=== PATIENT | female | born 1935 | race Caucasian/White ===

== ENCOUNTER 2017-08-09 15:27 | Inpatient (IN) ==
[2017-08-20 08:38] VITALS: BP 149/71
== END 2017-08-20 12:55 | DRG 207 ==
LOC: N.5E 15:53 → SUATTDRO 15:53 → N.ICU 08-12 08:31
PROVIDERS: ADMIT Internal Medicine; ATTEND Internal Medicine Cardiovascular Disease

== ENCOUNTER 2017-10-02 18:05 | Inpatient (IN) ==
[2017-10-02] MEDS ORDERED: SODIUM CHLORIDE 0.9% 1,000 ML IV STA (18:54)
[2017-10-02 19:06] LABS: Basophils # 0.1 10*3/uL (0.0-0.2); Basophils % 0.2 % (0.0-0.8); Hematocrit 28.6 VOL% (35.7-47.0); Hemoglobin 8.7 GM/DL (12.0-16.0); Immature Granulocytes % 2.1 %; Immature Granulocytes Absolute 0.47 #; Lymphocytes # 0.5 10*3/uL (1.4-4.0); Mean Corpuscular HGB Conc 30.4 GM/DL (32-36); Mean Corpuscular Hemoglobin 27 PG (27-34); Mean Platelet Volume 10.6 FL (9.6-12.0); Monocytes # 0.8 10*3/uL (0.11-0.8); Monocytes % 3.5 % (1.7-12.7); NRBC # 0.04 10*3/uL; Neutrophils # 20.3 10*3/uL (1.4-7.4); Neutrophils % 92.2 % (38.7-73.9); Platelet Count 479 T/CUMM (130-400); Red Blood Count 3.25 MC/CUMM (3.8-5.5); White Blood Count 22.1 T/CUMM (4-12)
[2017-10-02 19:10] LABS: PT Patient Result 10.7 SECS
[2017-10-02 19:17] LABS: Albumin 2.4 G/DL (3.4-5.0); Bilirubin,Total 0.4 MG/DL (0.2-1.0); Calcium 9.3 MG/DL (8.5-10.1); Osmolality,Calculated 280.1 MOS/KG (273-304); Potassium 4.3 MMOL/L (3.5-5.1); Total Protein 5.3 G/DL (6.4-8.3)
[2017-10-02 19:30] LABS: ABG Base Excess 6.9 MMOL/L (-2.5-2.5); ABG HCO3 30.7 MMOL/L (20-26); ABG Oxygen Saturation 96.8 % (95-100); ABG PCO2 32.9 MM HG (35-48); ABG PH 7.558 (7.35-7.45); ABG PO2 82.5 MM HG (80-95); ABG TCO2 26.9 MMOL/L (23-27); Allen Test Positive
[2017-10-02] MEDS ORDERED: ACETAMINOPHEN 500 MG TABLET PO STA (19:46)
[2017-10-02 19:47] LABS: Band Neutrophils 2 % (0-10); Lymphocytes 3 % (20-55); Segmented Neutrophils 95 % (50-85); Total Cells Counted 100
[2017-10-02] MEDS ORDERED: ACETAMINOPHEN 500 MG TABLET ONE (19:48)
[2017-10-02 19:49] LABS: Anisocytosis 1+; Giant Platelets Few; Hypochromasia 1+; Polychromasia Few
[2017-10-02 19:55] LABS: Apearance,Urine CLEAR (Clear); Bacteria,Urine Occasional /HPF (Few); Bilirubin,Urine Negative (Negative); Blood, Urine Negative (Negative); Glucose,Urine (UA) Negative (Negative); Hyaline Casts,Urine 3 /LPF (0-3); Ketones,Urine 5 mg/dL (Negative); Mucus,Urine Occasional /LPF (Occasional); Nitrite,Urine Negative (Negative); Protein,Urine Negative; RBC,Urine <1 /HPF (0-4); Urine Color Yellow (Yellow); Urine Specific Gravity 1.012 (1.001-1.035); Urine Urobilinogen < 2.0 EU/DL (0.2-1.0); WBC,Urine 4 /HPF (0-6)
[2017-10-02 20:12] LABS: Lactic Acid 2.4 MMOL/L (0.4-2.0)
[2017-10-02] MEDS ORDERED: VANCOMYCIN INJ 1,000 MG in SODIUM CHLORIDE 0.9% 250 ML IV STA (20:36)
[2017-10-02] MEDS ORDERED: ALBUTEROL 2.5 MG/3 ML NEB RESP TX PRN (21:12)
[2017-10-02] MEDS ORDERED: DOCUSATE SODIUM 100 MG CAPSULE PO PRN (21:12)
[2017-10-02] MEDS ORDERED: NOREPINEPHRINE 8 MG in SODIUM CHLORIDE 0.9% 242 ML IV PRN (21:12)
[2017-10-02] MEDS ORDERED: ONDANSETRON 4 MG/2 ML VIAL IV PRN (21:12)
[2017-10-02] MEDS ORDERED: traZODone 50 MG TABLET PO PRN (21:12)
[2017-10-02] MEDS ORDERED: MORPHINE 4 MG/1 ML VIAL IV PRN (21:12)
[2017-10-02] MEDS ORDERED: POLYETHYLENE GLYCOL POWDER 17 GM PACK PO PRN (21:23)
[2017-10-02] MEDS ORDERED: SODIUM CHLORIDE 0.9% 1,000 ML IV SCH (21:30)
[2017-10-03] MEDS: ENOXAPARIN 80 MG/0.8 ML SYRINGE SUBCUT SCH ×2 (01:35→13:53)
[2017-10-03] MEDS: PIPERACILLIN/TAZOBACTAM 3,375 MG in SODIUM CHLORIDE 0.9% 100 ML IV SCH ×3 (01:35→16:37)
[2017-10-03 03:07] LABS: Basophils % 0.1 % (0.0-0.8); Eosinophils % 0.1 % (0.00-10.9); Hematocrit 25.3 VOL% (35.7-47.0); Hemoglobin 7.7 GM/DL (12.0-16.0); Immature Granulocytes Absolute 0.38 #; Lymphocytes # 0.8 10*3/uL (1.4-4.0); Mean Corpuscular HGB Conc 30.4 GM/DL (32-36); Mean Corpuscular Hemoglobin 27 PG (27-34); Mean Corpuscular Volume 88.5 FL (87-102); Mean Platelet Volume 9.7 FL (9.6-12.0); Monocytes % 5.3 % (1.7-12.7); NRBC # 0.02 10*3/uL; Neutrophils # 17.2 10*3/uL (1.4-7.4); Neutrophils % 88.5 % (38.7-73.9); Platelet Count 380 T/CUMM (130-400); Red Blood Count 2.86 MC/CUMM (3.8-5.5); White Blood Count 19.4 T/CUMM (4-12)
[2017-10-03 03:28] LABS: ABG Base Excess 6.8 MMOL/L (-2.5-2.5); ABG HCO3 30.2 MMOL/L (20-26); ABG Oxygen Saturation 91.7 % (95-100); ABG PCO2 38.3 MM HG (35-48); ABG PH 7.515 (7.35-7.45); ABG PO2 69.1 MM HG (80-95); ABG TCO2 31.4 MMOL/L (23-27); Allen Test Positive
[2017-10-03 03:34] LABS: Potassium 3.8 MMOL/L (3.5-5.1)
[2017-10-03 06:51] LABS: Lymphocytes 7 % (20-55); Platelet Estimate Normal; Segmented Neutrophils 90 % (50-85)
[2017-10-03 06:52] LABS: Hypochromasia 1+; Microcytosis 1+; Polychromasia Few
[2017-10-03 06:53] LABS: Total Cells Counted 100
[2017-10-03] MEDS ORDERED: FUROSEMIDE 40 MG/4 ML VIAL ONE (08:06)
[2017-10-03] MEDS: METOPROLOL TARTRATE 25 MG TABLET PO SCH ×2 (08:29→21:03)
[2017-10-03] MEDS: PANTOPRAZOLE 40 MG TABLET PO SCH (08:30)
[2017-10-03] MEDS: DILTIAZEM CD 180 MG CAPSULE PO SCH (08:30)
[2017-10-03] MEDS: VANCOMYCIN INJ 1,000 MG in SODIUM CHLORIDE 0.9% 250 ML IV SCH ×2 (08:31→21:02)
[2017-10-03] MEDS: methylPREDNISolone SOD SUC 40 MG/1 ML VIAL IV SCH ×3 (08:31→19:02)
[2017-10-03] MEDS: FUROSEMIDE 40 MG/4 ML VIAL IV SCH ×2 (08:31→16:37)
[2017-10-03] MEDS: FLUVOXAMINE MALEATE 150 MG PO SCH (21:02)
[2017-10-03] MEDS ORDERED: FUROSEMIDE 40 MG/4 ML VIAL IV SCH (21:07)
[2017-10-04] MEDS: PIPERACILLIN/TAZOBACTAM 3,375 MG in SODIUM CHLORIDE 0.9% 100 ML IV SCH ×3 (00:28→15:50)
[2017-10-04] MEDS: ENOXAPARIN 80 MG/0.8 ML SYRINGE SUBCUT SCH ×2 (00:28→14:36)
[2017-10-04] MEDS: methylPREDNISolone SOD SUC 40 MG/1 ML VIAL IV SCH ×4 (00:28→18:17)
[2017-10-04 03:38] LABS: ABG Base Excess 7.7 MMOL/L (-2.5-2.5); ABG HCO3 31.3 MMOL/L (20-26); ABG Oxygen Saturation 95.5 % (95-100); ABG PCO2 39.7 MM HG (35-48); ABG PH 7.515 (7.35-7.45); ABG PO2 82.7 MM HG (80-95); ABG TCO2 32.5 MMOL/L (23-27); Allen Test Positive; Pt O2 Delivery Device Other
[2017-10-04 04:17] LABS: Calcium 9.3 MG/DL (8.5-10.1); Osmolality,Calculated 282.5 MOS/KG (273-304); Potassium 3.3 MMOL/L (3.5-5.1)
[2017-10-04 04:25] LABS: Basophils % 0.1 % (0.0-0.8); Hematocrit 23.3 VOL% (35.7-47.0); Hemoglobin 7.1 GM/DL (12.0-16.0); Immature Granulocytes % 1.9 %; Immature Granulocytes Absolute 0.27 #; Lymphocytes # 0.6 10*3/uL (1.4-4.0); Lymphocytes % 3.9 % (21.3-54.2); Mean Corpuscular HGB Conc 30.5 GM/DL (32-36); Mean Corpuscular Hemoglobin 27 PG (27-34); Mean Corpuscular Volume 88.6 FL (87-102); Mean Platelet Volume 10.3 FL (9.6-12.0); Monocytes # 0.2 10*3/uL (0.11-0.8); Monocytes % 1.5 % (1.7-12.7); Neutrophils # 13.3 10*3/uL (1.4-7.4); Neutrophils % 92.6 % (38.7-73.9); Platelet Count 370 T/CUMM (130-400); Red Blood Count 2.63 MC/CUMM (3.8-5.5); White Blood Count 14.3 T/CUMM (4-12)
[2017-10-04 05:03] LABS: Hypochromasia 1+; Lymphocytes 3 % (20-55); Microcytosis 1+; Ovalocytes Slight; Platelet Estimate Adequate; Segmented Neutrophils 96 % (50-85); Total Cells Counted 100
[2017-10-04] MEDS ORDERED: FUROSEMIDE 40 MG/4 ML VIAL IV PRN (08:15)
[2017-10-04] MEDS ORDERED: SODIUM CHLORIDE 0.9% 1,000 ML IV PRN (08:15)
[2017-10-04] MEDS: FUROSEMIDE 40 MG/4 ML VIAL IV SCH ×2 (09:19→15:50)
[2017-10-04] MEDS: METOPROLOL TARTRATE 25 MG TABLET PO SCH ×2 (09:24→20:58)
[2017-10-04] MEDS: PANTOPRAZOLE 40 MG TABLET PO SCH (09:24)
[2017-10-04] MEDS: DILTIAZEM CD 180 MG CAPSULE PO SCH (09:24)
[2017-10-04] MEDS: VANCOMYCIN INJ 1,000 MG in SODIUM CHLORIDE 0.9% 250 ML IV SCH ×2 (09:25→20:58)
[2017-10-04] MEDS: FLUVOXAMINE MALEATE 150 MG PO SCH ×2 (09:25→21:04)
[2017-10-04 11:26] LABS: % Iron Saturation 8.8 % (18-50)
[2017-10-04 11:28] LABS: Folate > 24.0 NG/ML (5.4-24.0); Vitamin B12 589 PG/ML (211-911)
[2017-10-04] MEDS: POTASSIUM CHLORIDE 20 MEQ TABLET PO SCH ×3 (11:45→18:17)
[2017-10-05] MEDS: PIPERACILLIN/TAZOBACTAM 3,375 MG in SODIUM CHLORIDE 0.9% 100 ML IV SCH ×3 (00:49→16:20)
[2017-10-05] MEDS: methylPREDNISolone SOD SUC 40 MG/1 ML VIAL IV SCH ×4 (00:50→18:25)
[2017-10-05] MEDS: ENOXAPARIN 80 MG/0.8 ML SYRINGE SUBCUT SCH ×2 (00:51→13:05)
[2017-10-05 04:15] LABS: Basophils % 0.1 % (0.0-0.8); Hematocrit 30.6 VOL% (35.7-47.0); Hemoglobin 9.7 GM/DL (12.0-16.0); Immature Granulocytes % 1.8 %; Immature Granulocytes Absolute 0.24 #; Lymphocytes # 0.5 10*3/uL (1.4-4.0); Lymphocytes % 3.7 % (21.3-54.2); Mean Corpuscular HGB Conc 31.7 GM/DL (32-36); Mean Corpuscular Hemoglobin 28 PG (27-34); Mean Corpuscular Volume 87.4 FL (87-102); Mean Platelet Volume 10.5 FL (9.6-12.0); Monocytes # 0.4 10*3/uL (0.11-0.8); Monocytes % 2.7 % (1.7-12.7); Neutrophils % 91.7 % (38.7-73.9); Platelet Count 379 T/CUMM (130-400); Red Cell Distribution Width 24.3 % (9.3-17.3); White Blood Count 13.1 T/CUMM (4-12)
[2017-10-05 04:30] LABS: ABG Base Excess 6.6 MMOL/L (-2.5-2.5); ABG HCO3 30.4 MMOL/L (20-26); ABG Oxygen Saturation 95.5 % (95-100); ABG PCO2 44.4 MM HG (35-48); ABG PH 7.457 (7.35-7.45); ABG PO2 77.3 MM HG (80-95); ABG TCO2 28.1 MMOL/L (23-27); Allen Test Positive; Pt O2 Delivery Device Other
[2017-10-05 04:42] LABS: Calcium 8.9 MG/DL (8.5-10.1); Osmolality,Calculated 286.5 MOS/KG (273-304); Potassium 3.2 MMOL/L (3.5-5.1)
[2017-10-05 05:05] LABS: Hypochromasia 1+; Lymphocytes 7 % (20-55); Microcytosis 1+; Platelet Estimate Adequate; Segmented Neutrophils 93 % (50-85); Total Cells Counted 100
[2017-10-05] MEDS: FLUVOXAMINE MALEATE 150 MG PO SCH ×2 (08:29→21:17)
[2017-10-05] MEDS: DILTIAZEM CD 180 MG CAPSULE PO SCH (08:29)
[2017-10-05] MEDS: METOPROLOL TARTRATE 25 MG TABLET PO SCH ×2 (08:29→21:17)
[2017-10-05] MEDS: POTASSIUM CHLORIDE 20 MEQ/15 ML UDCUP PO PRN ×4 (08:30→16:20)
[2017-10-05] MEDS: VANCOMYCIN INJ 1,000 MG in SODIUM CHLORIDE 0.9% 250 ML IV SCH ×2 (08:30→21:17)
[2017-10-05] MEDS: PANTOPRAZOLE 40 MG TABLET PO SCH (08:30)
[2017-10-05] MEDS: FUROSEMIDE 40 MG/4 ML VIAL IV SCH (08:32)
[2017-10-05] MEDS ORDERED: FUROSEMIDE 40 MG/4 ML VIAL IV SCH (09:00)
[2017-10-05] MEDS ORDERED: METOPROLOL TARTRATE 25 MG TABLET PO ONE (09:30)
[2017-10-06] MEDS: PIPERACILLIN/TAZOBACTAM 3,375 MG in SODIUM CHLORIDE 0.9% 100 ML IV SCH ×3 (00:24→16:18)
[2017-10-06] MEDS: ENOXAPARIN 80 MG/0.8 ML SYRINGE SUBCUT SCH ×2 (00:25→13:00)
[2017-10-06] MEDS: methylPREDNISolone SOD SUC 40 MG/1 ML VIAL IV SCH ×4 (00:25→19:35)
[2017-10-06 04:20] LABS: ABG Base Excess 4.3 MMOL/L (-2.5-2.5); ABG HCO3 28.2 MMOL/L (20-26); ABG Oxygen Saturation 97.2 % (95-100); ABG PCO2 44.1 MM HG (35-48); ABG PH 7.429 (7.35-7.45); ABG PO2 91.2 MM HG (80-95); ABG TCO2 26.2 MMOL/L (23-27)
[2017-10-06 04:24] LABS: Hematocrit 32.6 VOL% (35.7-47.0); Hemoglobin 10.3 GM/DL (12.0-16.0); Mean Corpuscular HGB Conc 31.6 GM/DL (32-36); Mean Corpuscular Hemoglobin 28 PG (27-34); Mean Corpuscular Volume 88.3 FL (87-102); Mean Platelet Volume 10.2 FL (9.6-12.0); Platelet Count 411 T/CUMM (130-400); Red Blood Count 3.69 MC/CUMM (3.8-5.5); Red Cell Distribution Width 22.6 % (9.3-17.3); White Blood Count 10.8 T/CUMM (4-12)
[2017-10-06 04:25] LABS: Basophils % 0.1 % (0.0-0.8); Immature Granulocytes % 4.4 %; Immature Granulocytes Absolute 0.47 #; Lymphocytes # 0.5 10*3/uL (1.4-4.0); Lymphocytes % 4.4 % (21.3-54.2); Monocytes # 0.4 10*3/uL (0.11-0.8); Monocytes % 3.5 % (1.7-12.7); Neutrophils # 9.5 10*3/uL (1.4-7.4); Neutrophils % 87.6 % (38.7-73.9)
[2017-10-06 04:51] LABS: Calcium 8.9 MG/DL (8.5-10.1); Osmolality,Calculated 284.7 MOS/KG (273-304); Potassium 3.6 MMOL/L (3.5-5.1)
[2017-10-06 05:02] LABS: Hypochromasia 1+; Lymphocytes 7 % (20-55); Metamyelocytes 1 %; Microcytosis 1+; Ovalocytes Slight; Platelet Estimate Increased; Segmented Neutrophils 90 % (50-85); Total Cells Counted 100
[2017-10-06] MEDS: POTASSIUM CHLORIDE 20 MEQ/15 ML UDCUP PO PRN ×2 (06:14→08:56)
[2017-10-06] MEDS ORDERED: POTASSIUM CHLORIDE 20 MEQ TABLET PO ONE (08:21)
[2017-10-06] MEDS: FLUVOXAMINE MALEATE 150 MG PO SCH ×2 (09:38→22:12)
[2017-10-06] MEDS: DILTIAZEM CD 180 MG CAPSULE PO SCH (09:38)
[2017-10-06] MEDS: METOPROLOL TARTRATE 25 MG TABLET PO SCH ×2 (09:39→22:11)
[2017-10-06] MEDS: FUROSEMIDE 40 MG/4 ML VIAL IV SCH ×2 (09:39→16:19)
[2017-10-06] MEDS: PANTOPRAZOLE 40 MG TABLET PO SCH (09:39)
[2017-10-06] MEDS: VANCOMYCIN INJ 1,000 MG in SODIUM CHLORIDE 0.9% 250 ML IV SCH (22:12)
[2017-10-07] MEDS: ENOXAPARIN 80 MG/0.8 ML SYRINGE SUBCUT SCH (00:27)
[2017-10-07] MEDS: methylPREDNISolone SOD SUC 40 MG/1 ML VIAL IV SCH ×2 (00:27→06:02)
[2017-10-07] MEDS: PIPERACILLIN/TAZOBACTAM 3,375 MG in SODIUM CHLORIDE 0.9% 100 ML IV SCH ×2 (00:27→08:21)
[2017-10-07 03:18] LABS: Hematocrit 32.3 VOL% (35.7-47.0); Hemoglobin 10.5 GM/DL (12.0-16.0); Immature Granulocytes % 3.7 %; Immature Granulocytes Absolute 0.39 #; Lymphocytes # 0.5 10*3/uL (1.4-4.0); Lymphocytes % 4.4 % (21.3-54.2); Mean Corpuscular HGB Conc 32.5 GM/DL (32-36); Mean Corpuscular Hemoglobin 28 PG (27-34); Mean Corpuscular Volume 84.6 FL (87-102); Mean Platelet Volume 9.9 FL (9.6-12.0); Monocytes # 0.5 10*3/uL (0.11-0.8); Monocytes % 4.6 % (1.7-12.7); Neutrophils # 9.1 10*3/uL (1.4-7.4); Neutrophils % 87.3 % (38.7-73.9); Platelet Count 419 T/CUMM (130-400); Red Blood Count 3.82 MC/CUMM (3.8-5.5); Red Cell Distribution Width 22.5 % (9.3-17.3); White Blood Count 10.5 T/CUMM (4-12)
[2017-10-07 03:53] LABS: Calcium 8.3 MG/DL (8.5-10.1); Osmolality,Calculated 287.5 MOS/KG (273-304); Potassium 2.8 MMOL/L (3.5-5.1)
[2017-10-07] MEDS: POTASSIUM CHLORIDE 20 MEQ/15 ML UDCUP PO PRN ×4 (04:21→10:49)
[2017-10-07 05:31] LABS: Band Neutrophils 3 % (0-10); Hypochromasia 1+; Lymphocytes 1 % (20-55); Microcytosis 1+; Polychromasia Slight; Segmented Neutrophils 91 % (50-85); Total Cells Counted 100
[2017-10-07] MEDS: FUROSEMIDE 40 MG/4 ML VIAL IV SCH ×2 (08:21→16:15)
[2017-10-07] MEDS ORDERED: POTASSIUM CHLORIDE 20 MEQ TABLET PO SCH (09:30)
[2017-10-07] MEDS ORDERED: MEROPENEM 1,000 MG in SODIUM CHLORIDE 0.9% 100 ML IV SCH (09:30)
[2017-10-07] MEDS ORDERED: ENOXAPARIN 40 MG/0.4 ML SYRINGE SUBCUT SCH (09:30)
[2017-10-07] MEDS: FLUVOXAMINE MALEATE 150 MG PO SCH (10:50)
[2017-10-07] MEDS: PANTOPRAZOLE 40 MG TABLET PO SCH (10:51)
[2017-10-07] MEDS: DILTIAZEM CD 180 MG CAPSULE PO SCH (10:51)
[2017-10-07] MEDS: METOPROLOL TARTRATE 25 MG TABLET PO SCH (10:51)
[2017-10-07] MEDS ORDERED: methylPREDNISolone SOD SUC 40 MG/1 ML VIAL IV SCH (14:00)
[2017-10-07] MEDS ORDERED: ZINC OXIDE PASTE 113 GM TUBE TOP SCH (14:30)
[2017-10-07] MEDS ORDERED: POTASSIUM CHLORIDE 20 MEQ/15 ML UDCUP PO SCH (15:00)
[2017-10-07] MEDS: VANCOMYCIN INJ 1,000 MG in SODIUM CHLORIDE 0.9% 250 ML IV SCH (16:14)
[2017-10-07 16:56] VITALS: BP 158/53
== END 2017-10-07 16:45 | DRG 853 ==
LOC: EDUNIT# → EDBD → N.ED 18:05 → SUATTDRO 21:12 → N.EDINP 21:12 → N.ICU 23:47
PROVIDERS: ADMIT Internal Medicine Geriatric Medicine; ATTEND Internal Medicine

== ENCOUNTER 2018-01-31 12:30 | Inpatient (IN) ==
[2018-01-31] MEDS ORDERED: ALBUTEROL 2.5 MG/3 ML NEB RESP TX PRN (14:41)
[2018-01-31] MEDS ORDERED: ACETAMINOPHEN 325 MG TABLET PO PRN (14:41)
[2018-01-31] MEDS ORDERED: PANTOPRAZOLE 40 MG VIAL IV SCH (15:00)
[2018-01-31 15:06] LABS: ABG Base Excess 5.2 MMOL/L (-2.5-2.5); ABG Oxygen Saturation 93.8 % (95-100); ABG PCO2 35.7 MM HG (35-48); ABG PO2 65.6 MM HG (80-95); ABG TCO2 26.7 MMOL/L (23-27); Allen Test Positive
[2018-01-31] MEDS ORDERED: DOCUSATE SODIUM 100 MG CAPSULE PO PRN (15:14)
[2018-01-31] MEDS ORDERED: POLYETHYLENE GLYCOL POWDER 17 GM PACK PO PRN (15:14)
[2018-01-31] MEDS: FUROSEMIDE 40 MG/4 ML VIAL IV SCH (15:15)
[2018-01-31 15:30] LABS: Basophils % 0.3 % (0.0-0.8); Eosinophils # 0.2 10*3/uL (0.0-0.87); Eosinophils % 1.5 % (0.00-10.9); Hematocrit 23.5 VOL% (35.7-47.0); Hemoglobin 6.9 GM/DL (12.0-16.0); Immature Granulocytes Absolute 0.14 #; Lymphocytes # 0.8 10*3/uL (1.4-4.0); Lymphocytes % 5.9 % (21.3-54.2); Mean Corpuscular HGB Conc 29.4 GM/DL (32-36); Mean Corpuscular Hemoglobin 21 PG (27-34); Mean Corpuscular Volume 70.4 FL (87-102); Mean Platelet Volume 11.2 FL (9.6-12.0); Monocytes # 1.3 10*3/uL (0.11-0.8); Monocytes % 9.9 % (1.7-12.7); Neutrophils % 81.4 % (38.7-73.9); Platelet Count 444 T/CUMM (130-400); Red Blood Count 3.34 MC/CUMM (3.8-5.5); Red Cell Distribution Width 18.9 % (9.3-17.3); White Blood Count 13.5 T/CUMM (4-12)
[2018-01-31 15:49] LABS: Apearance,Urine CLEAR (Clear); Bilirubin,Urine Negative (Negative); Blood, Urine Negative (Negative); Glucose,Urine (UA) Negative (Negative); Hyaline Casts,Urine 1 /LPF (0-3); Ketones,Urine 5 mg/dL (Negative); Mucus,Urine Occasional /LPF (Occasional); Nitrite,Urine Negative (Negative); Protein,Urine Negative; Squamous Epithelial Cell,Urine Occasional /HPF (0-10); Urine Color Yellow (Yellow); Urine Specific Gravity 1.011 (1.001-1.035); Urine Urobilinogen < 2.0 EU/DL (0.2-1.0); WBC,Urine 1 /HPF (0-6)
[2018-01-31 15:53] LABS: Lactic Acid 1.8 MMOL/L (0.4-2.0)
[2018-01-31] MEDS ORDERED: SODIUM CHLORIDE 0.9% 1,000 ML IV PRN (16:07)
[2018-01-31 16:39] LABS: Albumin 2.4 G/DL (3.4-5.0); Bilirubin,Total 1.7 MG/DL (0.2-1.0); Calcium 8.9 MG/DL (8.5-10.1); Osmolality,Calculated 278.7 MOS/KG (273-304); Potassium 4.3 MMOL/L (3.5-5.1); Total Protein 5.2 G/DL (6.4-8.3)
[2018-01-31] MEDS: METOPROLOL TARTRATE 25 MG TABLET PO SCH (20:30)
[2018-01-31] MEDS: SPIRONOLACTONE 25 MG TABLET PO SCH (20:30)
[2018-01-31] MEDS: PANTOPRAZOLE 40 MG TABLET PO SCH (20:31)
[2018-01-31] MEDS ORDERED: FUROSEMIDE 40 MG/4 ML VIAL IV ONE (20:39)
[2018-01-31] MEDS ORDERED: FLUVOXAMINE MALEATE 150 MG PO SCH (21:00)
[2018-01-31] MEDS ORDERED: APIXABAN 5 MG TABLET PO SCH (21:00)
[2018-02-01 05:06] LABS: Potassium 3.6 MMOL/L (3.5-5.1)
[2018-02-01 05:35] LABS: Basophils # 0.1 10*3/uL (0.0-0.2); Basophils % 0.3 % (0.0-0.8); Eosinophils # 0.4 10*3/uL (0.0-0.87); Eosinophils % 2.3 % (0.00-10.9); Hematocrit 25.2 VOL% (35.7-47.0); Hemoglobin 7.7 GM/DL (12.0-16.0); Immature Granulocytes % 1.1 %; Immature Granulocytes Absolute 0.17 #; Lymphocytes # 0.7 10*3/uL (1.4-4.0); Lymphocytes % 4.5 % (21.3-54.2); Mean Corpuscular HGB Conc 30.6 GM/DL (32-36); Mean Corpuscular Hemoglobin 21 PG (27-34); Mean Platelet Volume 11.5 FL (9.6-12.0); Monocytes # 1.5 10*3/uL (0.11-0.8); Monocytes % 9.7 % (1.7-12.7); Neutrophils # 12.3 10*3/uL (1.4-7.4); Neutrophils % 82.1 % (38.7-73.9); Platelet Count 420 T/CUMM (130-400); Red Cell Distribution Width 18.2 % (9.3-17.3)
[2018-02-01 05:46] LABS: Eosinophils 1 % (0-10); Hypochromasia 1+; Lymphocytes 9 % (20-55); Microcytosis 1+; Platelet Estimate Normal; Polychromasia Few; Segmented Neutrophils 90 % (50-85); Target Cells Few; Total Cells Counted 100
[2018-02-01] MEDS ORDERED: PANTOPRAZOLE 40 MG TABLET PO SCH (09:00)
[2018-02-01] MEDS ORDERED: DILTIAZEM 60 MG TABLET PO SCH (09:00)
[2018-02-01] MEDS ORDERED: SODIUM CHLORIDE 0.9% 1,000 ML IV PRN (09:09)
[2018-02-01] MEDS: SPIRONOLACTONE 25 MG TABLET PO SCH ×2 (09:20→20:53)
[2018-02-01] MEDS: METOPROLOL TARTRATE 25 MG TABLET PO SCH ×2 (09:21→20:52)
[2018-02-01] MEDS: FUROSEMIDE 40 MG/4 ML VIAL IV SCH ×3 (09:21→18:47)
[2018-02-01] MEDS: POTASSIUM CHLORIDE 10 MEQ TABLET PO SCH (09:21)
[2018-02-01] MEDS: PANTOPRAZOLE 40 MG TABLET PO SCH ×2 (09:21→20:52)
[2018-02-01] MEDS ORDERED: IRON DEXTRAN 50 MG in SYRINGE 1 EACH IV ONE (10:00)
[2018-02-01] MEDS ORDERED: SODIUM CHLORIDE 0.9% IV ONE (11:00)
[2018-02-01] MEDS ORDERED: IRON DEXTRAN IV ONE (11:00)
[2018-02-01] MEDS ORDERED: FUROSEMIDE 40 MG/4 ML VIAL IV ONE (12:30)
[2018-02-01] MEDS: LEVOTHYROXINE 75 MCG TABLET PO SCH (12:44)
[2018-02-01 14:29] LABS: Hematocrit 29.2 VOL% (35.7-47.0); Hemoglobin 8.8 GM/DL (12.0-16.0)
[2018-02-01] MEDS ORDERED: MAGNESIUM CITRATE 300 ML BOTTLE PO ONE (18:00)
[2018-02-01] MEDS: traZODone 50 MG TABLET PO PRN (20:52)
[2018-02-01] MEDS: POLYETHYLENE GLYCOL POWDER 17 GM PACK PO SCH (20:53)
[2018-02-02] MEDS ORDERED: FUROSEMIDE 20 MG/2 ML VIAL ONE (01:32)
[2018-02-02] MEDS: FUROSEMIDE 40 MG/4 ML VIAL IV SCH ×3 (01:47→18:23)
[2018-02-02 05:20] LABS: Basophils # 0.1 10*3/uL (0.0-0.2); Basophils % 0.3 % (0.0-0.8); Eosinophils # 0.7 10*3/uL (0.0-0.87); Eosinophils % 4.3 % (0.00-10.9); Hematocrit 30.6 VOL% (35.7-47.0); Hemoglobin 9.5 GM/DL (12.0-16.0); Immature Granulocytes % 1.1 %; Immature Granulocytes Absolute 0.17 #; Lymphocytes # 0.8 10*3/uL (1.4-4.0); Mean Corpuscular Hemoglobin 22 PG (27-34); Mean Corpuscular Volume 72.2 FL (87-102); Mean Platelet Volume 11.1 FL (9.6-12.0); Monocytes # 1.4 10*3/uL (0.11-0.8); Neutrophils # 12.1 10*3/uL (1.4-7.4); Neutrophils % 80.3 % (38.7-73.9); Platelet Count 426 T/CUMM (130-400); Red Blood Count 4.24 MC/CUMM (3.8-5.5); Red Cell Distribution Width 19.2 % (9.3-17.3); White Blood Count 15.1 T/CUMM (4-12)
[2018-02-02 05:50] LABS: Calcium 9.5 MG/DL (8.5-10.1); Osmolality,Calculated 286.3 MOS/KG (273-304); Potassium 3.7 MMOL/L (3.5-5.1)
[2018-02-02 06:23] LABS: Albumin 2.1 G/DL (3.4-5.0); Bilirubin,Direct 1.94 MG/DL (0.0-0.20); Bilirubin,Indirect 0.6 MG/DL (0.0-1.0); Bilirubin,Total 2.5 MG/DL (0.2-1.0); Total Protein 5.7 G/DL (6.4-8.3)
[2018-02-02] MEDS: METOPROLOL TARTRATE 25 MG TABLET PO SCH ×2 (10:10→21:02)
[2018-02-02] MEDS: LEVOTHYROXINE 75 MCG TABLET PO SCH (10:10)
[2018-02-02] MEDS: POLYETHYLENE GLYCOL POWDER 17 GM PACK PO SCH ×2 (10:11→21:01)
[2018-02-02] MEDS: PANTOPRAZOLE 40 MG TABLET PO SCH ×2 (10:11→21:02)
[2018-02-02] MEDS: SPIRONOLACTONE 25 MG TABLET PO SCH ×2 (10:11→21:03)
[2018-02-02] MEDS: POTASSIUM CHLORIDE 10 MEQ TABLET PO SCH (10:11)
[2018-02-02 17:48] LABS: ABG Base Excess 6.5 MMOL/L (-2.5-2.5); ABG HCO3 30.3 MMOL/L (20-26); ABG Oxygen Saturation 97.6 % (95-100); ABG PCO2 38.4 MM HG (35-48); ABG PH 7.502 (7.35-7.45); ABG PO2 86.9 MM HG (80-95); ABG TCO2 27.3 MMOL/L (23-27)
[2018-02-02] MEDS: PIPERACILLIN/TAZOBACTAM 3,375 MG in SODIUM CHLORIDE 0.9% 100 ML IV SCH (18:22)
[2018-02-02] MEDS: ALBUTEROL/IPRATROPIUM 3 ML NEB RESP TX SCH (20:23)
[2018-02-02] MEDS: traZODone 50 MG TABLET PO PRN (21:02)
[2018-02-03] MEDS: ALBUTEROL/IPRATROPIUM 3 ML NEB RESP TX SCH ×7 (00:40→23:49)
[2018-02-03] MEDS: FUROSEMIDE 40 MG/4 ML VIAL IV SCH ×3 (01:03→21:03)
[2018-02-03] MEDS: PIPERACILLIN/TAZOBACTAM 3,375 MG in SODIUM CHLORIDE 0.9% 100 ML IV SCH ×3 (01:04→16:57)
[2018-02-03 05:25] LABS: Basophils # 0.1 10*3/uL (0.0-0.2); Basophils % 0.3 % (0.0-0.8); Eosinophils # 0.8 10*3/uL (0.0-0.87); Hematocrit 30.2 VOL% (35.7-47.0); Hemoglobin 9.1 GM/DL (12.0-16.0); Immature Granulocytes % 1.2 %; Immature Granulocytes Absolute 0.19 #; Lymphocytes % 6.3 % (21.3-54.2); Mean Corpuscular HGB Conc 30.1 GM/DL (32-36); Mean Corpuscular Hemoglobin 22 PG (27-34); Mean Corpuscular Volume 72.9 FL (87-102); Mean Platelet Volume 11.3 FL (9.6-12.0); Monocytes # 1.4 10*3/uL (0.11-0.8); Monocytes % 9.1 % (1.7-12.7); Neutrophils % 78.1 % (38.7-73.9); Platelet Count 466 T/CUMM (130-400); Red Blood Count 4.14 MC/CUMM (3.8-5.5); Red Cell Distribution Width 20.7 % (9.3-17.3); White Blood Count 15.4 T/CUMM (4-12)
[2018-02-03 06:01] VITALS: BP 106/46
[2018-02-03 06:10] LABS: Albumin 1.9 G/DL (3.4-5.0); Bilirubin,Total 1.9 MG/DL (0.2-1.0); Calcium 9.9 MG/DL (8.5-10.1); Potassium 3.7 MMOL/L (3.5-5.1); Total Protein 5.5 G/DL (6.4-8.3)
[2018-02-03] MEDS: POTASSIUM CHLORIDE 10 MEQ TABLET PO SCH (09:40)
[2018-02-03] MEDS: LEVOTHYROXINE 75 MCG TABLET PO SCH (09:40)
[2018-02-03] MEDS: POLYETHYLENE GLYCOL POWDER 17 GM PACK PO SCH ×2 (09:40→21:04)
[2018-02-03] MEDS: SPIRONOLACTONE 25 MG TABLET PO SCH ×2 (09:40→21:02)
[2018-02-03] MEDS: methylPREDNISolone SOD SUC 40 MG/1 ML VIAL IV SCH ×2 (09:40→16:55)
[2018-02-03] MEDS: PANTOPRAZOLE 40 MG TABLET PO SCH ×2 (09:41→21:04)
[2018-02-03] MEDS: METOPROLOL TARTRATE 25 MG TABLET PO SCH ×2 (09:41→21:04)
[2018-02-03] MEDS: FLUVOXAMINE MALEATE 150 MG PO SCH ×2 (10:50→21:06)
[2018-02-03] MEDS ORDERED: POTASSIUM CHLORIDE 20 MEQ PACK PO ONE (16:59)
[2018-02-03 18:57] LABS: % Iron Saturation 89.9 % (18-50)
[2018-02-03 19:09] LABS: Folate > 24.0 NG/ML (5.4-24.0); Vitamin B12 > 2000 PG/ML (211-911)
[2018-02-04] MEDS: methylPREDNISolone SOD SUC 40 MG/1 ML VIAL IV SCH ×2 (01:37→08:29)
[2018-02-04] MEDS: PIPERACILLIN/TAZOBACTAM 3,375 MG in SODIUM CHLORIDE 0.9% 100 ML IV SCH ×2 (01:37→08:36)
[2018-02-04] MEDS: ALBUTEROL/IPRATROPIUM 3 ML NEB RESP TX SCH ×3 (03:09→12:30)
[2018-02-04 03:32] LABS: Basophils % 0.2 % (0.0-0.8); Eosinophils % 0.1 % (0.00-10.9); Hematocrit 31.1 VOL% (35.7-47.0); Hemoglobin 9.1 GM/DL (12.0-16.0); Immature Granulocytes % 1.8 %; Immature Granulocytes Absolute 0.22 #; Lymphocytes # 0.6 10*3/uL (1.4-4.0); Lymphocytes % 4.7 % (21.3-54.2); Mean Corpuscular HGB Conc 29.3 GM/DL (32-36); Mean Corpuscular Hemoglobin 22 PG (27-34); Mean Corpuscular Volume 74.8 FL (87-102); Mean Platelet Volume 11.4 FL (9.6-12.0); Monocytes # 0.2 10*3/uL (0.11-0.8); Monocytes % 1.6 % (1.7-12.7); Neutrophils # 11.2 10*3/uL (1.4-7.4); Neutrophils % 91.6 % (38.7-73.9); Platelet Count 452 T/CUMM (130-400); Red Blood Count 4.16 MC/CUMM (3.8-5.5); Red Cell Distribution Width 21.7 % (9.3-17.3); White Blood Count 12.2 T/CUMM (4-12)
[2018-02-04 04:01] LABS: Calcium 9.9 MG/DL (8.5-10.1); Osmolality,Calculated 286.5 MOS/KG (273-304); Potassium 4.2 MMOL/L (3.5-5.1)
[2018-02-04 04:18] LABS: Hypochromasia 1+; Lymphocytes 5 % (20-55); Platelet Estimate Normal; Polychromasia Few; Segmented Neutrophils 95 % (50-85); Total Cells Counted 100
[2018-02-04 04:44] LABS: Albumin 1.9 G/DL (3.4-5.0); Bilirubin,Total 1.1 MG/DL (0.2-1.0); Calcium 9.6 MG/DL (8.5-10.1); Osmolality,Calculated 286.5 MOS/KG (273-304); Potassium 4.2 MMOL/L (3.5-5.1); Total Protein 5.7 G/DL (6.4-8.3)
[2018-02-04 05:16] LABS: ABG Base Excess 5.6 MMOL/L (-2.5-2.5); ABG Oxygen Saturation 95.8 % (95-100); ABG PCO2 43.6 MM HG (35-48); ABG PH 7.456 (7.35-7.45); ABG PO2 89.3 MM HG (80-95); ABG TCO2 31.4 MMOL/L (23-27); Allen Test Positive; Pt O2 Delivery Device Other
[2018-02-04] MEDS ORDERED: LINACLOTIDE 145 MCG CAPSULE PO SCH (07:30)
[2018-02-04] MEDS: LEVOTHYROXINE 75 MCG TABLET PO SCH (08:28)
[2018-02-04] MEDS: METOPROLOL TARTRATE 25 MG TABLET PO SCH (08:28)
[2018-02-04] MEDS: POTASSIUM CHLORIDE 10 MEQ TABLET PO SCH (08:28)
[2018-02-04] MEDS: PANTOPRAZOLE 40 MG TABLET PO SCH (08:29)
[2018-02-04] MEDS: SPIRONOLACTONE 25 MG TABLET PO SCH (08:29)
[2018-02-04] MEDS: FLUVOXAMINE MALEATE 150 MG PO SCH (08:29)
[2018-02-04] MEDS: FUROSEMIDE 40 MG/4 ML VIAL IV SCH (08:36)
[2018-02-04] MEDS ORDERED: MONTELUKAST 10 MG TABLET PO SCH (09:00)
[2018-02-04] MEDS ORDERED: ZINC OXIDE PASTE 113 GM TUBE TOP PRN (10:41)
== END 2018-02-04 14:22 | DRG 291 ==
LOC: N.CC → SUATTDRO 14:43
PROVIDERS: ADMIT Internal Medicine; ATTEND Internal Medicine

== ENCOUNTER 2020-09-19 13:45 | Inpatient (IN) ==
[2020-09-19 14:30] LABS: Basophils # 0.1 10*3/uL (0.0-0.2); Basophils % 0.3 % (0.0-0.8); Eosinophils # 0.1 10*3/uL (0.0-0.87); Eosinophils % 0.2 % (0.00-10.9); Hematocrit 42.8 VOL% (35.7-47.0); Immature Granulocytes % 1.1 %; Immature Granulocytes Absolute 0.22 #; Lymphocytes # 0.3 10*3/uL (1.4-4.0); Lymphocytes % 1.2 % (21.3-54.2); Mean Corpuscular HGB Conc 32.7 GM/DL (32-36); Mean Corpuscular Volume 90.9 FL (87-102); Mean Platelet Volume 10.8 FL (9.6-12.0); Monocytes % 5.1 % (1.7-12.7); Neutrophils % 92.1 % (38.7-73.9); Platelet Count 624 T/CUMM (130-400); Red Blood Count 4.71 MC/CUMM (3.8-5.5); Red Cell Distribution Width 14.6 % (9.3-17.3); White Blood Count 20.9 T/CUMM (4-12)
[2020-09-19 14:55] LABS: Albumin 2.7 G/DL (3.4-5.0); Bilirubin,Total 1.1 MG/DL (0.20-1.00); Calcium 9.1 MG/DL (8.5-10.1); Osmolality,Calculated 277.1 MOS/KG (273-304); Total Protein 5.6 G/DL (6.4-8.2)
[2020-09-19 15:08] LABS: INR 1.2; PT Patient Result 12.9 SECS (10.5-12.0); Partial Thromboplastin Time 27.5 SECS (23.9-33.8)
[2020-09-19] MEDS ORDERED: methylPREDNISolone SOD SUC 125 MG/2 ML VIAL IV STA (15:29)
[2020-09-19] MEDS ORDERED: LEVOFLOXACIN 500 MG TABLET PO STA (15:29)
[2020-09-19] MEDS ORDERED: guaiFENesin/DM ER 600-30 MG TABLET PO PRN (16:09)
[2020-09-19] MEDS ORDERED: hydrALAZINE 20 MG/1 ML VIAL IV PRN (16:09)
[2020-09-19] MEDS ORDERED: DEXTROSE 50% 25 GM/50 ML VIAL IV PRN (16:09)
[2020-09-19] MEDS ORDERED: ACETAMINOPHEN 325 MG TABLET PO PRN (16:09)
[2020-09-19] MEDS ORDERED: GLUCAGON 1 MG VIAL IM PRN (16:09)
[2020-09-19] MEDS ORDERED: ONDANSETRON 4 MG/2 ML VIAL IV PRN (16:09)
[2020-09-19] MEDS ORDERED: FUROSEMIDE 20 MG/2 ML VIAL IV ONE (16:14)
[2020-09-19] MEDS ORDERED: DOCUSATE SODIUM 100 MG CAPSULE PO PRN (16:18)
[2020-09-19] MEDS ORDERED: FUROSEMIDE 40 MG/4 ML VIAL IV ONE (17:00)
[2020-09-19] MEDS: CEFEPIME 1,000 MG in SODIUM CHLORIDE 0.9% 100 ML IV SCH (17:31)
[2020-09-19] MEDS: ALBUTEROL/IPRATROPIUM 3 ML NEB RESP TX SCH (19:25)
[2020-09-19 19:44] LABS: Band Neutrophils 4 % (0-10); Lymphocytes 1 % (20-55); Platelet Estimate Increased; Segmented Neutrophils 90 % (50-85); Total Cells Counted 100
[2020-09-19] MEDS: SPIRONOLACTONE 25 MG TABLET PO SCH (21:15)
[2020-09-19] MEDS: APIXABAN 2.5 MG TABLET PO SCH (21:15)
[2020-09-19] MEDS: METOPROLOL TARTRATE 25 MG TABLET PO SCH (21:15)
[2020-09-20] MEDS: ALBUTEROL/IPRATROPIUM 3 ML NEB RESP TX SCH ×4 (01:25→19:30)
[2020-09-20] MEDS: CEFEPIME 1,000 MG in SODIUM CHLORIDE 0.9% 100 ML IV SCH ×2 (05:03→16:58)
[2020-09-20 06:05] LABS: Basophils % 0.2 % (0.0-0.8); Hematocrit 43.7 VOL% (35.7-47.0); Hemoglobin 14.4 GM/DL (12.0-16.0); Immature Granulocytes % 1.2 %; Immature Granulocytes Absolute 0.24 #; Lymphocytes # 0.2 10*3/uL (1.4-4.0); Lymphocytes % 1.1 % (21.3-54.2); Mean Platelet Volume 10.9 FL (9.6-12.0); Monocytes % 3.3 % (1.7-12.7); Neutrophils % 94.2 % (38.7-73.9); Platelet Count 609 T/CUMM (130-400); Red Blood Count 4.75 MC/CUMM (3.8-5.5); Red Cell Distribution Width 14.4 % (9.3-17.3); White Blood Count 20.1 T/CUMM (4-12)
[2020-09-20 06:30] LABS: Lymphocytes 1 % (20-55); Platelet Estimate Increased; Segmented Neutrophils 97 % (50-85); Total Cells Counted 100
[2020-09-20 06:36] LABS: Albumin 2.4 G/DL (3.4-5.0); Bilirubin,Total 1.2 MG/DL (0.20-1.00); Calcium 9.9 MG/DL (8.5-10.1); Osmolality,Calculated 283.7 MOS/KG (273-304); Potassium 4.4 MMOL/L (3.5-5.1); Total Protein 6.5 G/DL (6.4-8.2)
[2020-09-20] MEDS: LEVOTHYROXINE 75 MCG TABLET PO SCH (07:15)
[2020-09-20] MEDS: METOPROLOL TARTRATE 25 MG TABLET PO SCH ×2 (08:49→21:05)
[2020-09-20] MEDS: SPIRONOLACTONE 25 MG TABLET PO SCH ×2 (08:50→21:05)
[2020-09-20] MEDS: MONTELUKAST 10 MG TABLET PO SCH (08:50)
[2020-09-20] MEDS: APIXABAN 2.5 MG TABLET PO SCH ×2 (08:51→21:05)
[2020-09-20] MEDS: PANTOPRAZOLE 40 MG TABLET PO SCH (08:51)
[2020-09-20] MEDS: LINACLOTIDE 145 MCG CAPSULE PO SCH (08:51)
[2020-09-20] MEDS ORDERED: FUROSEMIDE 40 MG/4 ML VIAL IV SCH (09:00)
[2020-09-20] MEDS ORDERED: FUROSEMIDE 20 MG/2 ML VIAL IV SCH (09:00)
[2020-09-21] MEDS: ALBUTEROL/IPRATROPIUM 3 ML NEB RESP TX SCH ×4 (00:30→19:07)
[2020-09-21] MEDS: CEFEPIME 1,000 MG in SODIUM CHLORIDE 0.9% 100 ML IV SCH (04:30)
[2020-09-21] MEDS: LEVOTHYROXINE 75 MCG TABLET PO SCH (05:39)
[2020-09-21 06:01] LABS: Basophils % 0.2 % (0.0-0.8); Eosinophils # 0.1 10*3/uL (0.0-0.87); Eosinophils % 0.6 % (0.00-10.9); Hematocrit 45.8 VOL% (35.7-47.0); Hemoglobin 14.6 GM/DL (12.0-16.0); Immature Granulocytes Absolute 0.49 #; Lymphocytes # 0.3 10*3/uL (1.4-4.0); Lymphocytes % 1.2 % (21.3-54.2); Mean Corpuscular HGB Conc 31.9 GM/DL (32-36); Mean Corpuscular Volume 91.6 FL (87-102); Monocytes % 6.3 % (1.7-12.7); Neutrophils % 89.7 % (38.7-73.9); Platelet Count 667 T/CUMM (130-400); Red Cell Distribution Width 14.7 % (9.3-17.3); White Blood Count 24.4 T/CUMM (4-12)
[2020-09-21 06:30] LABS: Albumin 2.3 G/DL (3.4-5.0); Bilirubin,Total 1.4 MG/DL (0.20-1.00); Calcium 10.1 MG/DL (8.5-10.1); Osmolality,Calculated 282.2 MOS/KG (273-304); Potassium 4.2 MMOL/L (3.5-5.1); Total Protein 6.4 G/DL (6.4-8.2)
[2020-09-21] MEDS: ALPRAZolam 0.5 MG TABLET PO PRN (08:44)
[2020-09-21] MEDS ORDERED: ALBUTEROL/IPRATROPIUM 3 ML NEB RESP TX PRN (08:53)
[2020-09-21] MEDS: APIXABAN 2.5 MG TABLET PO SCH ×3 (08:58→22:35)
[2020-09-21] MEDS: MONTELUKAST 10 MG TABLET PO SCH (08:58)
[2020-09-21] MEDS: METOPROLOL TARTRATE 25 MG TABLET PO SCH ×3 (08:58→22:35)
[2020-09-21] MEDS: SPIRONOLACTONE 25 MG TABLET PO SCH (08:58)
[2020-09-21] MEDS: LINACLOTIDE 145 MCG CAPSULE PO SCH (08:58)
[2020-09-21] MEDS: PANTOPRAZOLE 40 MG TABLET PO SCH (08:58)
[2020-09-21] MEDS ORDERED: methylPREDNISolone SOD SUC 40 MG/1 ML VIAL IV ONE (09:31)
[2020-09-21 09:41] LABS: Band Neutrophils 1 % (0-10); Lymphocytes 1 % (20-55); Polychromasia Slight; Segmented Neutrophils 92 % (50-85); Total Cells Counted 100
[2020-09-21 09:42] LABS: Platelet Estimate Increased
[2020-09-21 10:05] LABS: ABG Base Excess -1.3 MMOL/L (-2.5-2.5); ABG HCO3 23.4 MMOL/L (20-26); ABG Oxygen Saturation 99.3 % (95-100); ABG PCO2 39.7 MM HG (35-48); ABG PH 7.383 (7.35-7.45); ABG TCO2 20.1 MMOL/L (23-27)
[2020-09-21] MEDS ORDERED: CEFEPIME 2,000 MG in SODIUM CHLORIDE 0.9% 100 ML IV SCH (16:30)
[2020-09-21] MEDS ORDERED: PIPERACILLIN/TAZOBACTAM 2.25 MG in SODIUM CHLORIDE 0.9% 100 ML IV SCH (21:00)
[2020-09-21] MEDS: AZITHROMYCIN INJ 500 MG in SODIUM CHLORIDE 0.9% 250 ML IV SCH (21:12)
[2020-09-21] MEDS: methylPREDNISolone SOD SUC 40 MG/1 ML VIAL IV SCH (21:25)
[2020-09-21] MEDS: LINEZOLID INJ 600 MG/300 ML PREMIX IV SCH (22:17)
[2020-09-21] MEDS: ACETYLCYSTEINE 20% 800 MG/4 ML VIAL RESP TX SCH (23:48)
[2020-09-22] MEDS: ALBUTEROL/IPRATROPIUM 3 ML NEB RESP TX SCH ×4 (00:08→19:46)
[2020-09-22] MEDS: LEVOTHYROXINE 75 MCG TABLET PO SCH (06:18)
[2020-09-22 06:21] LABS: Bilirubin,Total 1.3 MG/DL (0.20-1.00); Calcium 9.5 MG/DL (8.5-10.1); Osmolality,Calculated 295.4 MOS/KG (273-304); Potassium 4.4 MMOL/L (3.5-5.1); Total Protein 6.1 G/DL (6.4-8.2)
[2020-09-22 06:32] LABS: Basophils % 0.1 % (0.0-0.8); Hematocrit 42.7 VOL% (35.7-47.0); Hemoglobin 13.9 GM/DL (12.0-16.0); Immature Granulocytes % 1.3 %; Immature Granulocytes Absolute 0.23 #; Lymphocytes # 0.2 10*3/uL (1.4-4.0); Lymphocytes % 1.3 % (21.3-54.2); Mean Corpuscular HGB Conc 32.6 GM/DL (32-36); Monocytes % 2.6 % (1.7-12.7); Neutrophils % 94.7 % (38.7-73.9); Platelet Count 609 T/CUMM (130-400); Red Blood Count 4.59 MC/CUMM (3.8-5.5); Red Cell Distribution Width 14.6 % (9.3-17.3); White Blood Count 17.5 T/CUMM (4-12)
[2020-09-22] MEDS: ACETYLCYSTEINE 20% 800 MG/4 ML VIAL RESP TX SCH ×2 (07:40→15:14)
[2020-09-22] MEDS: APIXABAN 2.5 MG TABLET PO SCH ×2 (09:34→21:02)
[2020-09-22] MEDS: LINACLOTIDE 145 MCG CAPSULE PO SCH (09:34)
[2020-09-22] MEDS: methylPREDNISolone SOD SUC 40 MG/1 ML VIAL IV SCH ×2 (09:34→21:03)
[2020-09-22] MEDS: METOPROLOL TARTRATE 25 MG TABLET PO SCH ×2 (09:34→21:02)
[2020-09-22] MEDS: MONTELUKAST 10 MG TABLET PO SCH (09:34)
[2020-09-22] MEDS: PANTOPRAZOLE 40 MG TABLET PO SCH (09:35)
[2020-09-22] MEDS: PIPERACILLIN/TAZOBACTAM 2,250 MG in SODIUM CHLORIDE 0.9% 100 ML IV SCH ×2 (09:48→17:47)
[2020-09-22 11:38] LABS: Platelet Estimate Increased; Segmented Neutrophils 98 % (50-85); Total Cells Counted 100
[2020-09-22] MEDS: LINEZOLID INJ 600 MG/300 ML PREMIX IV SCH (14:50)
[2020-09-22 17:01] LABS: ABG Base Excess -0.2 MMOL/L (-2.5-2.5); ABG HCO3 24.2 MMOL/L (20-26); ABG Oxygen Saturation 97.2 % (95-100); ABG PCO2 45.4 MM HG (35-48); ABG PO2 96.4 MM HG (80-95); ABG TCO2 22.2 MMOL/L (23-27)
[2020-09-22] MEDS: AZITHROMYCIN INJ 500 MG in SODIUM CHLORIDE 0.9% 250 ML IV SCH (21:05)
[2020-09-23] MEDS: ALBUTEROL/IPRATROPIUM 3 ML NEB RESP TX SCH ×4 (00:15→19:58)
[2020-09-23] MEDS: ACETYLCYSTEINE 20% 800 MG/4 ML VIAL RESP TX SCH ×4 (00:15→22:43)
[2020-09-23] MEDS: LINEZOLID INJ 600 MG/300 ML PREMIX IV SCH ×3 (01:11→15:18)
[2020-09-23] MEDS: PIPERACILLIN/TAZOBACTAM 2,250 MG in SODIUM CHLORIDE 0.9% 100 ML IV SCH ×3 (02:51→18:26)
[2020-09-23 05:14] LABS: Basophils % 0.1 % (0.0-0.8); Hematocrit 41.5 VOL% (35.7-47.0); Hemoglobin 13.6 GM/DL (12.0-16.0); Immature Granulocytes % 1.6 %; Lymphocytes # 0.3 10*3/uL (1.4-4.0); Lymphocytes % 1.4 % (21.3-54.2); Mean Corpuscular HGB Conc 32.8 GM/DL (32-36); Mean Corpuscular Volume 91.8 FL (87-102); Mean Platelet Volume 10.9 FL (9.6-12.0); Neutrophils % 92.9 % (38.7-73.9); Platelet Count 604 T/CUMM (130-400); Red Blood Count 4.52 MC/CUMM (3.8-5.5); Red Cell Distribution Width 14.5 % (9.3-17.3); White Blood Count 18.9 T/CUMM (4-12)
[2020-09-23 05:44] LABS: Lymphocytes 2 % (20-55); Segmented Neutrophils 95 % (50-85); Total Cells Counted 100
[2020-09-23 05:45] LABS: Bilirubin,Total 0.9 MG/DL (0.20-1.00); Calcium 9.5 MG/DL (8.5-10.1); Osmolality,Calculated 298.4 MOS/KG (273-304); Platelet Estimate Increased; Potassium 4.5 MMOL/L (3.5-5.1); Total Protein 5.8 G/DL (6.4-8.2)
[2020-09-23] MEDS: LEVOTHYROXINE 75 MCG TABLET PO SCH (05:57)
[2020-09-23] MEDS ORDERED: FUROSEMIDE 20 MG/2 ML VIAL IV ONE (10:00)
[2020-09-23] MEDS: APIXABAN 2.5 MG TABLET PO SCH ×2 (10:52→23:09)
[2020-09-23] MEDS: METOPROLOL TARTRATE 25 MG TABLET PO SCH ×2 (10:53→23:09)
[2020-09-23] MEDS: LINACLOTIDE 145 MCG CAPSULE PO SCH (10:53)
[2020-09-23] MEDS: PANTOPRAZOLE 40 MG TABLET PO SCH (10:54)
[2020-09-23] MEDS: MONTELUKAST 10 MG TABLET PO SCH (10:54)
[2020-09-23] MEDS: methylPREDNISolone SOD SUC 40 MG/1 ML VIAL IV SCH ×2 (10:57→23:08)
[2020-09-23] MEDS: AZITHROMYCIN INJ 500 MG in SODIUM CHLORIDE 0.9% 250 ML IV SCH (23:07)
[2020-09-23] MEDS: ALPRAZolam 0.5 MG TABLET PO PRN (23:09)
[2020-09-24] MEDS: ALBUTEROL/IPRATROPIUM 3 ML NEB RESP TX SCH ×4 (00:05→19:59)
[2020-09-24] MEDS: LINEZOLID INJ 600 MG/300 ML PREMIX IV SCH ×2 (02:47→14:34)
[2020-09-24] MEDS: PIPERACILLIN/TAZOBACTAM 2,250 MG in SODIUM CHLORIDE 0.9% 100 ML IV SCH (04:45)
[2020-09-24] MEDS: LEVOTHYROXINE 75 MCG TABLET PO SCH (06:18)
[2020-09-24 06:44] LABS: Basophils % 0.1 % (0.0-0.8); Hematocrit 44.2 VOL% (35.7-47.0); Hemoglobin 13.8 GM/DL (12.0-16.0); Immature Granulocytes % 1.5 %; Immature Granulocytes Absolute 0.29 #; Lymphocytes # 0.2 10*3/uL (1.4-4.0); Lymphocytes % 1.3 % (21.3-54.2); Mean Corpuscular HGB Conc 31.2 GM/DL (32-36); Mean Corpuscular Volume 92.9 FL (87-102); Mean Platelet Volume 10.9 FL (9.6-12.0); Monocytes % 4.1 % (1.7-12.7); Platelet Count 651 T/CUMM (130-400); Red Blood Count 4.76 MC/CUMM (3.8-5.5); Red Cell Distribution Width 14.6 % (9.3-17.3); White Blood Count 18.8 T/CUMM (4-12)
[2020-09-24] MEDS: ACETYLCYSTEINE 20% 800 MG/4 ML VIAL RESP TX SCH (07:05)
[2020-09-24 07:07] LABS: Band Neutrophils 1 % (0-10); Hypochromasia 1+; Lymphocytes 1 % (20-55); Segmented Neutrophils 94 % (50-85); Total Cells Counted 100
[2020-09-24 07:08] LABS: Microcytosis 1+; Platelet Estimate Increased
[2020-09-24 07:21] LABS: Albumin 2.1 G/DL (3.4-5.0); Bilirubin,Total 0.8 MG/DL (0.20-1.00); Calcium 9.5 MG/DL (8.5-10.1); Osmolality,Calculated 303.1 MOS/KG (273-304); Potassium 4.2 MMOL/L (3.5-5.1); Total Protein 5.8 G/DL (6.4-8.2)
[2020-09-24] MEDS: METOPROLOL TARTRATE 25 MG TABLET PO SCH ×2 (10:02→22:42)
[2020-09-24] MEDS: LINACLOTIDE 145 MCG CAPSULE PO SCH (10:03)
[2020-09-24] MEDS: MONTELUKAST 10 MG TABLET PO SCH (10:03)
[2020-09-24] MEDS: APIXABAN 2.5 MG TABLET PO SCH ×2 (10:03→22:41)
[2020-09-24] MEDS: PANTOPRAZOLE 40 MG TABLET PO SCH (10:03)
[2020-09-24] MEDS: methylPREDNISolone SOD SUC 40 MG/1 ML VIAL IV SCH ×2 (10:04→22:40)
[2020-09-24] MEDS: FLUCONAZOLE INJ 100 MG/50 ML PREMIX IV SCH (12:31)
[2020-09-24] MEDS: DEXTROSE 5% NACL 0.45% 1,000 ML IV SCH (13:14)
[2020-09-24] MEDS: PIPERACILLIN/TAZOBACTAM 3,375 MG in SODIUM CHLORIDE 0.9% 100 ML IV SCH (18:37)
[2020-09-24] MEDS: AZITHROMYCIN INJ 500 MG in SODIUM CHLORIDE 0.9% 250 ML IV SCH (22:40)
[2020-09-25] MEDS: ACETYLCYSTEINE 20% 800 MG/4 ML VIAL RESP TX SCH ×5 (00:43→23:06)
[2020-09-25] MEDS: ALBUTEROL/IPRATROPIUM 3 ML NEB RESP TX SCH ×5 (00:43→23:06)
[2020-09-25] MEDS: LINEZOLID INJ 600 MG/300 ML PREMIX IV SCH ×2 (02:43→13:30)
[2020-09-25] MEDS: LEVOTHYROXINE 75 MCG TABLET PO SCH (05:32)
[2020-09-25] MEDS: PIPERACILLIN/TAZOBACTAM 3,375 MG in SODIUM CHLORIDE 0.9% 100 ML IV SCH ×2 (05:32→17:18)
[2020-09-25 05:50] LABS: Basophils % 0.1 % (0.0-0.8); Eosinophils % 0.1 % (0.00-10.9); Hematocrit 42.3 VOL% (35.7-47.0); Immature Granulocytes % 1.7 %; Immature Granulocytes Absolute 0.29 #; Lymphocytes # 0.2 10*3/uL (1.4-4.0); Lymphocytes % 1.2 % (21.3-54.2); Mean Corpuscular HGB Conc 33.1 GM/DL (32-36); Mean Corpuscular Volume 93.2 FL (87-102); Mean Platelet Volume 11.1 FL (9.6-12.0); Monocytes % 1.6 % (1.7-12.7); Neutrophils % 95.3 % (38.7-73.9); Platelet Count 634 T/CUMM (130-400); Red Blood Count 4.54 MC/CUMM (3.8-5.5); Red Cell Distribution Width 14.6 % (9.3-17.3); White Blood Count 17.1 T/CUMM (4-12)
[2020-09-25 06:00] LABS: Bilirubin,Total 0.8 MG/DL (0.20-1.00); Calcium 9.4 MG/DL (8.5-10.1); Osmolality,Calculated 305.1 MOS/KG (273-304); Potassium 4.1 MMOL/L (3.5-5.1); Total Protein 5.5 G/DL (6.4-8.2)
[2020-09-25 06:12] LABS: Lymphocytes 1 % (20-55); Platelet Estimate Increased; Segmented Neutrophils 98 % (50-85); Total Cells Counted 100
[2020-09-25] MEDS: METOPROLOL TARTRATE 25 MG TABLET PO SCH ×2 (10:34→21:48)
[2020-09-25] MEDS: MONTELUKAST 10 MG TABLET PO SCH (10:34)
[2020-09-25] MEDS: PANTOPRAZOLE 40 MG TABLET PO SCH (10:35)
[2020-09-25] MEDS: APIXABAN 2.5 MG TABLET PO SCH ×2 (10:35→21:48)
[2020-09-25] MEDS: LINACLOTIDE 145 MCG CAPSULE PO SCH (10:36)
[2020-09-25] MEDS: methylPREDNISolone SOD SUC 40 MG/1 ML VIAL IV SCH ×2 (10:37→21:49)
[2020-09-25] MEDS: DEXTROSE 5% NACL 0.45% 1,000 ML IV SCH (11:28)
[2020-09-25] MEDS: FLUCONAZOLE INJ 100 MG/50 ML PREMIX IV SCH (11:28)
[2020-09-25] MEDS: ALPRAZolam 0.5 MG TABLET PO PRN (16:49)
[2020-09-25] MEDS: AZITHROMYCIN INJ 500 MG in SODIUM CHLORIDE 0.9% 250 ML IV SCH (21:50)
[2020-09-26] MEDS: LINEZOLID INJ 600 MG/300 ML PREMIX IV SCH ×2 (02:56→14:03)
[2020-09-26 05:41] LABS: Basophils % 0.1 % (0.0-0.8); Eosinophils % 0.1 % (0.00-10.9); Hemoglobin 13.5 GM/DL (12.0-16.0); Immature Granulocytes % 2.3 %; Immature Granulocytes Absolute 0.41 #; Lymphocytes # 0.3 10*3/uL (1.4-4.0); Lymphocytes % 1.4 % (21.3-54.2); Mean Corpuscular HGB Conc 31.4 GM/DL (32-36); Mean Corpuscular Volume 94.7 FL (87-102); Mean Platelet Volume 10.6 FL (9.6-12.0); Monocytes % 1.8 % (1.7-12.7); Neutrophils % 94.3 % (38.7-73.9); Platelet Count 600 T/CUMM (130-400); Red Blood Count 4.54 MC/CUMM (3.8-5.5); Red Cell Distribution Width 14.6 % (9.3-17.3); White Blood Count 18.2 T/CUMM (4-12)
[2020-09-26] MEDS: PIPERACILLIN/TAZOBACTAM 3,375 MG in SODIUM CHLORIDE 0.9% 100 ML IV SCH ×2 (05:52→17:56)
[2020-09-26] MEDS: DEXTROSE 5% NACL 0.45% 1,000 ML IV SCH (05:54)
[2020-09-26] MEDS: ALPRAZolam 0.5 MG TABLET PO PRN ×2 (05:56→19:14)
[2020-09-26] MEDS: LEVOTHYROXINE 75 MCG TABLET PO SCH (05:56)
[2020-09-26 06:07] LABS: Anisocytosis Slight; Band Neutrophils 1 % (0-10); Lymphocytes 3 % (20-55); Macrocytosis 1+; Platelet Estimate Increased; Segmented Neutrophils 94 % (50-85); Total Cells Counted 100
[2020-09-26 06:08] LABS: Bilirubin,Total 1.2 MG/DL (0.20-1.00); Calcium 9.4 MG/DL (8.5-10.1); Osmolality,Calculated 302.1 MOS/KG (273-304); Potassium 4.3 MMOL/L (3.5-5.1); Total Protein 5.2 G/DL (6.4-8.2)
[2020-09-26] MEDS: ALBUTEROL/IPRATROPIUM 3 ML NEB RESP TX SCH ×3 (08:10→19:37)
[2020-09-26] MEDS: ACETYLCYSTEINE 20% 800 MG/4 ML VIAL RESP TX SCH (08:10)
[2020-09-26] MEDS: PANTOPRAZOLE 40 MG TABLET PO SCH (10:08)
[2020-09-26] MEDS: METOPROLOL TARTRATE 25 MG TABLET PO SCH ×2 (10:08→20:30)
[2020-09-26] MEDS: APIXABAN 2.5 MG TABLET PO SCH ×2 (10:09→20:30)
[2020-09-26] MEDS: POTASSIUM CHLORIDE 10 MEQ TABLET PO SCH (10:10)
[2020-09-26] MEDS: FUROSEMIDE 20 MG/2 ML VIAL IV SCH ×2 (10:10→17:56)
[2020-09-26] MEDS: SPIRONOLACTONE 25 MG TABLET PO SCH ×2 (10:10→20:31)
[2020-09-26] MEDS: MONTELUKAST 10 MG TABLET PO SCH (10:10)
[2020-09-26] MEDS: methylPREDNISolone SOD SUC 40 MG/1 ML VIAL IV SCH ×2 (10:10→20:28)
[2020-09-26] MEDS: LINACLOTIDE 145 MCG CAPSULE PO SCH (10:10)
[2020-09-26] MEDS: FLUCONAZOLE INJ 100 MG/50 ML PREMIX IV SCH (11:57)
[2020-09-26] MEDS: MORPHINE 2 MG/1 ML SYRINGE IV PRN (20:30)
[2020-09-27] MEDS: ALBUTEROL/IPRATROPIUM 3 ML NEB RESP TX SCH ×4 (00:05→19:40)
[2020-09-27] MEDS: ACETYLCYSTEINE 20% 800 MG/4 ML VIAL RESP TX SCH ×3 (00:05→14:53)
[2020-09-27] MEDS: LINEZOLID INJ 600 MG/300 ML PREMIX IV SCH ×2 (01:17→18:09)
[2020-09-27] MEDS: FUROSEMIDE 20 MG/2 ML VIAL IV SCH ×3 (01:20→19:53)
[2020-09-27 05:10] LABS: Basophils # 0.1 10*3/uL (0.0-0.2); Basophils % 0.2 % (0.0-0.8); Hematocrit 44.6 VOL% (35.7-47.0); Hemoglobin 14.1 GM/DL (12.0-16.0); Immature Granulocytes % 2.2 %; Immature Granulocytes Absolute 0.48 #; Lymphocytes # 0.2 10*3/uL (1.4-4.0); Mean Corpuscular HGB Conc 31.6 GM/DL (32-36); Mean Corpuscular Volume 93.9 FL (87-102); Mean Platelet Volume 10.8 FL (9.6-12.0); Monocytes % 3.6 % (1.7-12.7); Platelet Count 527 T/CUMM (130-400); Red Blood Count 4.75 MC/CUMM (3.8-5.5); Red Cell Distribution Width 14.3 % (9.3-17.3); White Blood Count 22.3 T/CUMM (4-12)
[2020-09-27] MEDS: LEVOTHYROXINE 75 MCG TABLET PO SCH (05:34)
[2020-09-27] MEDS: PIPERACILLIN/TAZOBACTAM 3,375 MG in SODIUM CHLORIDE 0.9% 100 ML IV SCH ×2 (05:34→20:05)
[2020-09-27 05:44] LABS: Anisocytosis 1+; Band Neutrophils 2 % (0-10); Lymphocytes 1 % (20-55); Macrocytosis Slight; Platelet Estimate Increased; Segmented Neutrophils 93 % (50-85); Total Cells Counted 100
[2020-09-27 07:36] LABS: Bilirubin,Total 0.4 MG/DL (0.20-1.00); Osmolality,Calculated 291.5 MOS/KG (273-304); Potassium 3.9 MMOL/L (3.5-5.1); Total Protein 5.2 G/DL (6.4-8.2)
[2020-09-27] MEDS: METOPROLOL TARTRATE 25 MG TABLET PO SCH ×2 (10:57→20:11)
[2020-09-27] MEDS: MONTELUKAST 10 MG TABLET PO SCH (10:57)
[2020-09-27] MEDS: PANTOPRAZOLE 40 MG TABLET PO SCH (10:58)
[2020-09-27] MEDS: SPIRONOLACTONE 25 MG TABLET PO SCH ×2 (10:58→20:10)
[2020-09-27] MEDS: APIXABAN 2.5 MG TABLET PO SCH (10:58)
[2020-09-27] MEDS: methylPREDNISolone SOD SUC 40 MG/1 ML VIAL IV SCH ×2 (10:59→20:14)
[2020-09-27] MEDS: LINACLOTIDE 145 MCG CAPSULE PO SCH (11:00)
[2020-09-27] MEDS: ENOXAPARIN 30 MG/0.3 ML SYRINGE SUBCUT SCH (13:03)
[2020-09-27] MEDS: POTASSIUM CHLORIDE RIDER 10 MEQ/100 ML PREMIX IV SCH ×2 (13:03→23:31)
[2020-09-27] MEDS: DEXTROSE 5% NACL 0.45% 1,000 ML IV SCH ×2 (18:08→19:39)
[2020-09-27] MEDS: POTASSIUM CHLORIDE 10 MEQ TABLET PO SCH (19:39)
[2020-09-27] MEDS ORDERED: POTASSIUM CHLORIDE RIDER 10 MEQ/100 ML PREMIX IV SCH (20:00)
[2020-09-27] MEDS: FLUCONAZOLE INJ 100 MG/50 ML PREMIX IV SCH (20:05)
[2020-09-27] MEDS: MORPHINE 2 MG/1 ML SYRINGE IV PRN (20:20)
[2020-09-28] MEDS: ACETYLCYSTEINE 20% 800 MG/4 ML VIAL RESP TX SCH ×3 (00:30→14:31)
[2020-09-28] MEDS: ALBUTEROL/IPRATROPIUM 3 ML NEB RESP TX SCH ×4 (00:50→19:04)
[2020-09-28] MEDS: LINEZOLID INJ 600 MG/300 ML PREMIX IV SCH (01:26)
[2020-09-28] MEDS: FUROSEMIDE 20 MG/2 ML VIAL IV SCH ×3 (01:26→17:53)
[2020-09-28] MEDS: LEVOTHYROXINE 100 MCG VIAL IV SCH ×2 (05:31→05:54)
[2020-09-28 06:21] LABS: Basophils % 0.2 % (0.0-0.8); Eosinophils % 0.1 % (0.00-10.9); Hematocrit 48.1 VOL% (35.7-47.0); Hemoglobin 15.2 GM/DL (12.0-16.0); Lymphocytes # 0.3 10*3/uL (1.4-4.0); Lymphocytes % 1.3 % (21.3-54.2); Mean Corpuscular HGB Conc 31.6 GM/DL (32-36); Mean Corpuscular Volume 92.1 FL (87-102); Mean Platelet Volume 10.5 FL (9.6-12.0); Monocytes % 1.8 % (1.7-12.7); Neutrophils % 93.6 % (38.7-73.9); Platelet Count 594 T/CUMM (130-400); Red Blood Count 5.22 MC/CUMM (3.8-5.5)
[2020-09-28 06:56] LABS: Lymphocytes 2 % (20-55); Platelet Estimate Increased; Segmented Neutrophils 96 % (50-85); Total Cells Counted 100
[2020-09-28 06:57] LABS: Albumin 2.3 G/DL (3.4-5.0); Bilirubin,Total 1.1 MG/DL (0.20-1.00); Calcium 9.3 MG/DL (8.5-10.1); Osmolality,Calculated 285.8 MOS/KG (273-304); Potassium 3.8 MMOL/L (3.5-5.1); Total Protein 5.8 G/DL (6.4-8.2)
[2020-09-28] MEDS: MONTELUKAST 10 MG TABLET PO SCH (10:11)
[2020-09-28] MEDS: SPIRONOLACTONE 25 MG TABLET PO SCH ×2 (10:12→20:24)
[2020-09-28] MEDS: PANTOPRAZOLE 40 MG VIAL IV SCH (10:12)
[2020-09-28] MEDS: POTASSIUM CHLORIDE 10 MEQ TABLET PO SCH (10:12)
[2020-09-28] MEDS: METOPROLOL TARTRATE 25 MG TABLET PO SCH ×2 (10:12→20:24)
[2020-09-28] MEDS: methylPREDNISolone SOD SUC 40 MG/1 ML VIAL IV SCH ×2 (10:13→20:24)
[2020-09-28] MEDS: PIPERACILLIN/TAZOBACTAM 3,375 MG in SODIUM CHLORIDE 0.9% 100 ML IV SCH ×2 (10:13→21:42)
[2020-09-28] MEDS: DEXTROSE 5% NACL 0.45% 1,000 ML IV SCH (11:46)
[2020-09-28] MEDS: INSULIN LISPRO 100 UNIT/ML SUBCUT SCH ×3 (11:47→21:36)
[2020-09-28] MEDS: ENOXAPARIN 30 MG/0.3 ML SYRINGE SUBCUT SCH (12:55)
[2020-09-28] MEDS: FLUCONAZOLE INJ 100 MG/50 ML PREMIX IV SCH (20:23)
[2020-09-29] MEDS: ACETYLCYSTEINE 20% 800 MG/4 ML VIAL RESP TX SCH ×3 (01:14→14:36)
[2020-09-29] MEDS: ALBUTEROL/IPRATROPIUM 3 ML NEB RESP TX SCH ×4 (01:14→19:20)
[2020-09-29] MEDS: FUROSEMIDE 20 MG/2 ML VIAL IV SCH ×3 (02:05→18:02)
[2020-09-29] MEDS: LEVOTHYROXINE 100 MCG VIAL IV SCH (05:42)
[2020-09-29] MEDS: DEXTROSE 5% NACL 0.45% 1,000 ML IV SCH (05:44)
[2020-09-29 06:17] LABS: Basophils % 0.1 % (0.0-0.8); Hematocrit 46.1 VOL% (35.7-47.0); Hemoglobin 14.9 GM/DL (12.0-16.0); Immature Granulocytes Absolute 0.36 #; Lymphocytes # 0.2 10*3/uL (1.4-4.0); Lymphocytes % 1.2 % (21.3-54.2); Mean Corpuscular HGB Conc 32.3 GM/DL (32-36); Mean Corpuscular Volume 91.3 FL (87-102); Mean Platelet Volume 10.4 FL (9.6-12.0); Monocytes % 1.4 % (1.7-12.7); Neutrophils % 95.3 % (38.7-73.9); Red Blood Count 5.05 MC/CUMM (3.8-5.5); Red Cell Distribution Width 13.9 % (9.3-17.3); White Blood Count 17.7 T/CUMM (4-12)
[2020-09-29 06:41] LABS: Albumin 2.1 G/DL (3.4-5.0); Bilirubin,Total 0.8 MG/DL (0.20-1.00); Osmolality,Calculated 298.1 MOS/KG (273-304); Potassium 3.7 MMOL/L (3.5-5.1); Total Protein 5.2 G/DL (6.4-8.2)
[2020-09-29 06:54] LABS: Platelet Count 457 T/CUMM (130-400)
[2020-09-29 06:59] LABS: Eosinophils 1 % (0-10); Lymphocytes 4 % (20-55); Platelet Estimate Adequate; Segmented Neutrophils 94 % (50-85); Total Cells Counted 100
[2020-09-29] MEDS: MONTELUKAST 10 MG TABLET PO SCH (09:17)
[2020-09-29] MEDS: SPIRONOLACTONE 25 MG TABLET PO SCH ×2 (09:17→21:32)
[2020-09-29] MEDS: methylPREDNISolone SOD SUC 40 MG/1 ML VIAL IV SCH ×2 (09:17→21:33)
[2020-09-29] MEDS: METOPROLOL TARTRATE 25 MG TABLET PO SCH ×2 (09:17→21:32)
[2020-09-29] MEDS: PIPERACILLIN/TAZOBACTAM 3,375 MG in SODIUM CHLORIDE 0.9% 100 ML IV SCH ×2 (09:18→21:23)
[2020-09-29] MEDS: PANTOPRAZOLE 40 MG VIAL IV SCH (09:18)
[2020-09-29] MEDS: INSULIN LISPRO 100 UNIT/ML SUBCUT SCH ×2 (09:19→12:47)
[2020-09-29] MEDS: ENOXAPARIN 30 MG/0.3 ML SYRINGE SUBCUT SCH (12:47)
[2020-09-29 14:51] LABS: ABG Oxygen Saturation 99.3 % (95-100); ABG PCO2 47.4 MM HG (35-48); ABG PH 7.498 (7.35-7.45); ABG PO2 299.3 MM HG (80-95); ABG TCO2 37.4 MMOL/L (23-27)
[2020-09-29] MEDS: FLUCONAZOLE INJ 100 MG/50 ML PREMIX IV SCH (21:31)
[2020-09-30] MEDS: ACETYLCYSTEINE 20% 800 MG/4 ML VIAL RESP TX SCH ×3 (00:20→15:12)
[2020-09-30] MEDS: ALBUTEROL/IPRATROPIUM 3 ML NEB RESP TX SCH ×4 (00:20→20:05)
[2020-09-30] MEDS: INSULIN LISPRO 100 UNIT/ML SUBCUT SCH ×5 (00:48→21:54)
[2020-09-30] MEDS: FUROSEMIDE 20 MG/2 ML VIAL IV SCH ×3 (02:08→17:30)
[2020-09-30 05:52] LABS: Basophils % 0.1 % (0.0-0.8); Hematocrit 48.1 VOL% (35.7-47.0); Hemoglobin 15.6 GM/DL (12.0-16.0); Immature Granulocytes % 1.8 %; Immature Granulocytes Absolute 0.48 #; Lymphocytes # 0.2 10*3/uL (1.4-4.0); Lymphocytes % 0.8 % (21.3-54.2); Mean Corpuscular HGB Conc 32.4 GM/DL (32-36); Mean Corpuscular Volume 90.1 FL (87-102); Mean Platelet Volume 10.4 FL (9.6-12.0); Monocytes % 1.4 % (1.7-12.7); Neutrophils % 95.9 % (38.7-73.9); Platelet Count 452 T/CUMM (130-400); Red Blood Count 5.34 MC/CUMM (3.8-5.5); Red Cell Distribution Width 13.9 % (9.3-17.3); White Blood Count 26.9 T/CUMM (4-12)
[2020-09-30] MEDS: LEVOTHYROXINE 100 MCG VIAL IV SCH (05:52)
[2020-09-30 06:13] LABS: Calcium 9.2 MG/DL (8.5-10.1); Osmolality,Calculated 296.3 MOS/KG (273-304); Potassium 3.1 MMOL/L (3.5-5.1)
[2020-09-30 06:19] LABS: Albumin 2.3 G/DL (3.4-5.0); Bilirubin,Total 1.3 MG/DL (0.20-1.00); Calcium 9.1 MG/DL (8.5-10.1); Osmolality,Calculated 298.1 MOS/KG (273-304); Potassium 3.1 MMOL/L (3.5-5.1); Total Protein 5.4 G/DL (6.4-8.2)
[2020-09-30 06:20] LABS: Lymphocytes 1 % (20-55); Platelet Estimate Adequate; Segmented Neutrophils 98 % (50-85); Total Cells Counted 100
[2020-09-30] MEDS: MONTELUKAST 10 MG TABLET PO SCH (09:34)
[2020-09-30] MEDS: METOPROLOL TARTRATE 25 MG TABLET PO SCH ×2 (09:34→21:52)
[2020-09-30] MEDS: SPIRONOLACTONE 25 MG TABLET PO SCH ×2 (09:34→21:52)
[2020-09-30] MEDS: methylPREDNISolone SOD SUC 40 MG/1 ML VIAL IV SCH ×2 (09:35→21:53)
[2020-09-30] MEDS: PANTOPRAZOLE 40 MG VIAL IV SCH (09:36)
[2020-09-30] MEDS: PIPERACILLIN/TAZOBACTAM 3,375 MG in SODIUM CHLORIDE 0.9% 100 ML IV SCH ×2 (09:36→23:06)
[2020-09-30] MEDS: DEXTROSE 5% NACL 0.45% 1,000 ML IV SCH (10:37)
[2020-09-30] MEDS ORDERED: NON-FORMULARY MEDICATION PO SCH (13:30)
[2020-09-30] MEDS: POTASSIUM CHLORIDE 10 MEQ TABLET PO SCH (13:35)
[2020-09-30] MEDS: ENOXAPARIN 30 MG/0.3 ML SYRINGE SUBCUT SCH (13:39)
[2020-09-30] MEDS ORDERED: POTASSIUM CHLORIDE 10 MEQ TABLET PO ONE (15:24)
[2020-09-30] MEDS: FLUCONAZOLE INJ 100 MG/50 ML PREMIX IV SCH (21:49)
[2020-09-30] MEDS: APIXABAN 2.5 MG TABLET PO SCH (21:53)
[2020-10-01] MEDS: ACETYLCYSTEINE 20% 800 MG/4 ML VIAL RESP TX SCH ×3 (00:13→16:16)
[2020-10-01] MEDS: ALBUTEROL/IPRATROPIUM 3 ML NEB RESP TX SCH ×4 (01:13→19:13)
[2020-10-01] MEDS: FUROSEMIDE 20 MG/2 ML VIAL IV SCH ×3 (02:49→18:17)
[2020-10-01] MEDS: LEVOTHYROXINE 100 MCG VIAL IV SCH (05:56)
[2020-10-01] MEDS: DEXTROSE 5% NACL 0.45% 1,000 ML IV SCH (06:19)
[2020-10-01 07:04] LABS: Basophils % 0.1 % (0.0-0.8); Hematocrit 46.8 VOL% (35.7-47.0); Hemoglobin 14.9 GM/DL (12.0-16.0); Immature Granulocytes % 2.2 %; Lymphocytes # 0.2 10*3/uL (1.4-4.0); Lymphocytes % 0.7 % (21.3-54.2); Mean Corpuscular HGB Conc 31.8 GM/DL (32-36); Mean Corpuscular Volume 92.3 FL (87-102); Mean Platelet Volume 10.7 FL (9.6-12.0); Monocytes % 2.6 % (1.7-12.7); Neutrophils % 94.4 % (38.7-73.9); Platelet Count 357 T/CUMM (130-400); Red Blood Count 5.07 MC/CUMM (3.8-5.5); White Blood Count 27.4 T/CUMM (4-12)
[2020-10-01 07:29] LABS: Lymphocytes 1 % (20-55); Platelet Estimate Adequate; Segmented Neutrophils 97 % (50-85); Total Cells Counted 100
[2020-10-01] MEDS: INSULIN LISPRO 100 UNIT/ML SUBCUT SCH ×5 (07:32→22:09)
[2020-10-01 07:33] LABS: Albumin 2.3 G/DL (3.4-5.0); Bilirubin,Total 1.1 MG/DL (0.20-1.00); Calcium 8.8 MG/DL (8.5-10.1); Osmolality,Calculated 301.7 MOS/KG (273-304); Potassium 3.2 MMOL/L (3.5-5.1)
[2020-10-01] MEDS: POTASSIUM CHLORIDE 10 MEQ TABLET PO SCH (09:16)
[2020-10-01] MEDS: METOPROLOL TARTRATE 25 MG TABLET PO SCH ×2 (09:16→21:47)
[2020-10-01] MEDS: SPIRONOLACTONE 25 MG TABLET PO SCH ×2 (09:16→21:49)
[2020-10-01] MEDS: MONTELUKAST 10 MG TABLET PO SCH (09:16)
[2020-10-01] MEDS: APIXABAN 2.5 MG TABLET PO SCH ×2 (09:16→21:48)
[2020-10-01] MEDS: methylPREDNISolone SOD SUC 40 MG/1 ML VIAL IV SCH ×2 (09:17→21:47)
[2020-10-01] MEDS: PANTOPRAZOLE 40 MG VIAL IV SCH (09:17)
[2020-10-01] MEDS ORDERED: POTASSIUM CHLORIDE 20 MEQ TABLET PO ONE (09:30)
[2020-10-01] MEDS: PIPERACILLIN/TAZOBACTAM 3,375 MG in SODIUM CHLORIDE 0.9% 100 ML IV SCH (09:41)
[2020-10-01] MEDS: FLUCONAZOLE INJ 100 MG/50 ML PREMIX IV SCH (21:51)
[2020-10-02] MEDS: ACETYLCYSTEINE 20% 800 MG/4 ML VIAL RESP TX SCH ×3 (00:13→15:00)
[2020-10-02] MEDS: ALBUTEROL/IPRATROPIUM 3 ML NEB RESP TX SCH ×4 (00:13→19:57)
[2020-10-02] MEDS: FUROSEMIDE 20 MG/2 ML VIAL IV SCH ×3 (02:05→18:26)
[2020-10-02 05:22] LABS: Basophils % 0.1 % (0.0-0.8); Hematocrit 46.5 VOL% (35.7-47.0); Hemoglobin 14.8 GM/DL (12.0-16.0); Immature Granulocytes % 1.7 %; Lymphocytes # 0.2 10*3/uL (1.4-4.0); Lymphocytes % 0.9 % (21.3-54.2); Mean Corpuscular HGB Conc 31.8 GM/DL (32-36); Mean Corpuscular Volume 91.4 FL (87-102); Mean Platelet Volume 10.8 FL (9.6-12.0); Neutrophils % 94.3 % (38.7-73.9); Platelet Count 298 T/CUMM (130-400); Red Blood Count 5.09 MC/CUMM (3.8-5.5); Red Cell Distribution Width 13.8 % (9.3-17.3); White Blood Count 22.9 T/CUMM (4-12)
[2020-10-02 05:41] LABS: Platelet Estimate Adequate; Segmented Neutrophils 98 % (50-85); Total Cells Counted 100
[2020-10-02] MEDS: LEVOTHYROXINE 100 MCG VIAL IV SCH (05:43)
[2020-10-02 05:47] LABS: Calcium 9.3 MG/DL (8.5-10.1); Osmolality,Calculated 295.1 MOS/KG (273-304); Potassium 3.1 MMOL/L (3.5-5.1)
[2020-10-02 05:50] LABS: Albumin 2.3 G/DL (3.4-5.0); Bilirubin,Total 0.8 MG/DL (0.20-1.00); Calcium 9.3 MG/DL (8.5-10.1); Osmolality,Calculated 301.7 MOS/KG (273-304); Potassium 3.2 MMOL/L (3.5-5.1); Total Protein 5.1 G/DL (6.4-8.2)
[2020-10-02] MEDS ORDERED: POTASSIUM CHLORIDE 10 MEQ TABLET PO ONE (09:15)
[2020-10-02] MEDS: INSULIN LISPRO 100 UNIT/ML SUBCUT SCH ×4 (09:21→23:09)
[2020-10-02] MEDS: POTASSIUM CHLORIDE 10 MEQ TABLET PO SCH (09:24)
[2020-10-02] MEDS: APIXABAN 2.5 MG TABLET PO SCH ×2 (09:24→22:31)
[2020-10-02] MEDS: SPIRONOLACTONE 25 MG TABLET PO SCH ×2 (09:24→22:32)
[2020-10-02] MEDS: MONTELUKAST 10 MG TABLET PO SCH (09:26)
[2020-10-02] MEDS: METOPROLOL TARTRATE 25 MG TABLET PO SCH ×2 (09:27→22:31)
[2020-10-02] MEDS: PANTOPRAZOLE 40 MG VIAL IV SCH (09:40)
[2020-10-02] MEDS: methylPREDNISolone SOD SUC 40 MG/1 ML VIAL IV SCH ×2 (09:44→22:31)
[2020-10-02] MEDS: MEROPENEM 500 MG in SODIUM CHLORIDE 0.9% 100 ML IV SCH ×2 (14:22→19:49)
[2020-10-02] MEDS: FLUCONAZOLE INJ 100 MG/50 ML PREMIX IV SCH (22:30)
[2020-10-03] MEDS: ACETYLCYSTEINE 20% 800 MG/4 ML VIAL RESP TX SCH ×3 (00:15→07:30)
[2020-10-03] MEDS: ALBUTEROL/IPRATROPIUM 3 ML NEB RESP TX SCH ×2 (00:15→07:30)
[2020-10-03] MEDS: FUROSEMIDE 20 MG/2 ML VIAL IV SCH ×3 (02:05→17:35)
[2020-10-03] MEDS: MEROPENEM 500 MG in SODIUM CHLORIDE 0.9% 100 ML IV SCH ×3 (03:24→19:17)
[2020-10-03] MEDS: LEVOTHYROXINE 100 MCG VIAL IV SCH (06:50)
[2020-10-03 07:11] LABS: Basophils % 0.1 % (0.0-0.8); Hematocrit 47.2 VOL% (35.7-47.0); Hemoglobin 15.5 GM/DL (12.0-16.0); Immature Granulocytes % 3.1 %; Immature Granulocytes Absolute 0.91 #; Lymphocytes # 0.2 10*3/uL (1.4-4.0); Lymphocytes % 0.8 % (21.3-54.2); Mean Corpuscular HGB Conc 32.8 GM/DL (32-36); Mean Corpuscular Volume 91.7 FL (87-102); Mean Platelet Volume 11.4 FL (9.6-12.0); Monocytes % 3.1 % (1.7-12.7); Neutrophils % 92.9 % (38.7-73.9); Platelet Count 336 T/CUMM (130-400); Red Blood Count 5.15 MC/CUMM (3.8-5.5); Red Cell Distribution Width 14.1 % (9.3-17.3); White Blood Count 28.9 T/CUMM (4-12)
[2020-10-03 07:42] LABS: Albumin 2.5 G/DL (3.4-5.0); Calcium 9.4 MG/DL (8.5-10.1); Osmolality,Calculated 302.7 MOS/KG (273-304); Potassium 3.3 MMOL/L (3.5-5.1); Total Protein 5.5 G/DL (6.4-8.2)
[2020-10-03 07:44] LABS: Band Neutrophils 1 % (0-10); Hypochromasia 1+; Segmented Neutrophils 98 % (50-85); Total Cells Counted 100
[2020-10-03 07:45] LABS: Microcytosis 1+; Platelet Estimate Normal
[2020-10-03] MEDS: INSULIN LISPRO 100 UNIT/ML SUBCUT SCH ×4 (07:46→22:43)
[2020-10-03] MEDS: SPIRONOLACTONE 25 MG TABLET PO SCH ×2 (09:39→22:43)
[2020-10-03] MEDS: METOPROLOL TARTRATE 25 MG TABLET PO SCH ×2 (09:40→22:42)
[2020-10-03] MEDS: POTASSIUM CHLORIDE 10 MEQ TABLET PO SCH (09:40)
[2020-10-03] MEDS: MONTELUKAST 10 MG TABLET PO SCH (09:40)
[2020-10-03] MEDS: APIXABAN 2.5 MG TABLET PO SCH ×2 (09:40→22:43)
[2020-10-03] MEDS: PANTOPRAZOLE 40 MG VIAL IV SCH (09:41)
[2020-10-03] MEDS: methylPREDNISolone SOD SUC 40 MG/1 ML VIAL IV SCH ×2 (09:45→22:42)
[2020-10-03] MEDS ORDERED: POTASSIUM CHLORIDE 10 MEQ TABLET PO ONE (10:00)
[2020-10-03] MEDS: ALPRAZolam 0.5 MG TABLET PO SCH ×2 (10:50→22:43)
[2020-10-03] MEDS: IPRATROPIUM 500 MCG/2.5 ML NEB RESP TX SCH (15:00)
[2020-10-03] MEDS: LEVALBUTEROL 0.63 MG/3 ML NEB RESP TX SCH (15:00)
[2020-10-03] MEDS: FLUCONAZOLE INJ 100 MG/50 ML PREMIX IV SCH (22:41)
[2020-10-04] MEDS: LEVALBUTEROL 0.63 MG/3 ML NEB RESP TX SCH ×2 (00:06→07:21)
[2020-10-04] MEDS: IPRATROPIUM 500 MCG/2.5 ML NEB RESP TX SCH ×3 (00:06→14:02)
[2020-10-04] MEDS: MEROPENEM 500 MG in SODIUM CHLORIDE 0.9% 100 ML IV SCH ×3 (03:42→18:35)
[2020-10-04] MEDS: LEVOTHYROXINE 100 MCG VIAL IV SCH (05:54)
[2020-10-04 06:53] LABS: Basophils % 0.1 % (0.0-0.8); Hematocrit 46.8 VOL% (35.7-47.0); Immature Granulocytes % 2.3 %; Immature Granulocytes Absolute 0.57 #; Lymphocytes # 0.2 10*3/uL (1.4-4.0); Lymphocytes % 0.8 % (21.3-54.2); Mean Corpuscular HGB Conc 32.1 GM/DL (32-36); Mean Platelet Volume 11.5 FL (9.6-12.0); Monocytes % 3.9 % (1.7-12.7); Neutrophils % 92.9 % (38.7-73.9); Platelet Count 290 T/CUMM (130-400); Red Blood Count 5.03 MC/CUMM (3.8-5.5); Red Cell Distribution Width 14.2 % (9.3-17.3); White Blood Count 25.2 T/CUMM (4-12)
[2020-10-04 07:17] LABS: Hypochromasia 1+; Lymphocytes 1 % (20-55); Microcytosis 1+; Platelet Estimate Adequate; Segmented Neutrophils 98 % (50-85); Total Cells Counted 100
[2020-10-04 07:17] LABS: Calcium 9.7 MG/DL (8.5-10.1); Osmolality,Calculated 307.4 MOS/KG (273-304); Potassium 3.9 MMOL/L (3.5-5.1)
[2020-10-04 07:36] LABS: Albumin 2.4 G/DL (3.4-5.0); Bilirubin,Total 0.8 MG/DL (0.20-1.00); Calcium 9.6 MG/DL (8.5-10.1); Osmolality,Calculated 307.4 MOS/KG (273-304); Potassium 3.6 MMOL/L (3.5-5.1); Total Protein 5.2 G/DL (6.4-8.2)
[2020-10-04] MEDS: MONTELUKAST 10 MG TABLET PO SCH (09:06)
[2020-10-04] MEDS: ALPRAZolam 0.5 MG TABLET PO SCH ×2 (09:06→21:59)
[2020-10-04] MEDS: POTASSIUM CHLORIDE 20 MEQ TABLET PO SCH (09:07)
[2020-10-04] MEDS: SPIRONOLACTONE 25 MG TABLET PO SCH ×2 (09:07→22:00)
[2020-10-04] MEDS: APIXABAN 2.5 MG TABLET PO SCH ×2 (09:07→21:59)
[2020-10-04] MEDS: PANTOPRAZOLE 40 MG VIAL IV SCH (09:08)
[2020-10-04] MEDS: FUROSEMIDE 20 MG/2 ML VIAL IV SCH ×2 (09:08→16:26)
[2020-10-04] MEDS: INSULIN LISPRO 100 UNIT/ML SUBCUT SCH ×4 (10:00→22:00)
[2020-10-04] MEDS: METOPROLOL TARTRATE 25 MG TABLET PO SCH ×2 (10:13→21:59)
[2020-10-04] MEDS: methylPREDNISolone SOD SUC 40 MG/1 ML VIAL IV SCH ×2 (12:00→22:00)
[2020-10-05] MEDS: IPRATROPIUM 500 MCG/2.5 ML NEB RESP TX SCH ×4 (00:15→23:25)
[2020-10-05] MEDS: LEVALBUTEROL 0.63 MG/3 ML NEB RESP TX SCH ×4 (00:15→23:25)
[2020-10-05] MEDS: FLUCONAZOLE INJ 100 MG/50 ML PREMIX IV SCH (02:11)
[2020-10-05] MEDS: MEROPENEM 500 MG in SODIUM CHLORIDE 0.9% 100 ML IV SCH ×3 (02:42→21:47)
[2020-10-05 04:23] LABS: Basophils % 0.2 % (0.0-0.8); Hematocrit 47.2 VOL% (35.7-47.0); Hemoglobin 14.7 GM/DL (12.0-16.0); Immature Granulocytes Absolute 0.44 #; Lymphocytes # 0.1 10*3/uL (1.4-4.0); Lymphocytes % 0.6 % (21.3-54.2); Mean Corpuscular HGB Conc 31.1 GM/DL (32-36); Mean Corpuscular Volume 93.5 FL (87-102); Mean Platelet Volume 12.3 FL (9.6-12.0); Monocytes % 4.1 % (1.7-12.7); Neutrophils % 93.1 % (38.7-73.9); Platelet Count 318 T/CUMM (130-400); Red Blood Count 5.05 MC/CUMM (3.8-5.5); Red Cell Distribution Width 14.2 % (9.3-17.3); White Blood Count 21.8 T/CUMM (4-12)
[2020-10-05 04:49] LABS: Albumin 2.5 G/DL (3.4-5.0); Bilirubin,Total 1.2 MG/DL (0.20-1.00); Calcium 9.6 MG/DL (8.5-10.1); Osmolality,Calculated 304.7 MOS/KG (273-304); Total Protein 5.2 G/DL (6.4-8.2)
[2020-10-05] MEDS: LEVOTHYROXINE 100 MCG VIAL IV SCH (06:23)
[2020-10-05 07:22] LABS: Anisocytosis Slight; Band Neutrophils 2 % (0-10); Lymphocytes 2 % (20-55); Macrocytosis Slight; Platelet Estimate Normal; Segmented Neutrophils 91 % (50-85); Total Cells Counted 100
[2020-10-05] MEDS: INSULIN LISPRO 100 UNIT/ML SUBCUT SCH ×4 (10:22→22:08)
[2020-10-05] MEDS: FUROSEMIDE 20 MG/2 ML VIAL IV SCH ×2 (10:29→15:59)
[2020-10-05] MEDS: SPIRONOLACTONE 25 MG TABLET PO SCH ×2 (10:34→21:43)
[2020-10-05] MEDS: APIXABAN 2.5 MG TABLET PO SCH ×2 (10:34→21:43)
[2020-10-05] MEDS: POTASSIUM CHLORIDE 20 MEQ TABLET PO SCH (10:36)
[2020-10-05] MEDS: METOPROLOL TARTRATE 25 MG TABLET PO SCH ×2 (10:37→21:43)
[2020-10-05] MEDS: PANTOPRAZOLE 40 MG VIAL IV SCH (10:37)
[2020-10-05] MEDS: MONTELUKAST 10 MG TABLET PO SCH (10:44)
[2020-10-05] MEDS: methylPREDNISolone SOD SUC 40 MG/1 ML VIAL IV SCH ×2 (10:46→22:09)
[2020-10-05] MEDS: ALPRAZolam 0.5 MG TABLET PO SCH ×2 (10:47→21:43)
[2020-10-05] MEDS ORDERED: SODIUM CHLORIDE 0.9% 1,000 ML IV SCH (12:00)
[2020-10-05] MEDS: SODIUM CHLORIDE 0.45% 1,000 ML IV SCH (15:52)
[2020-10-06] MEDS: FLUCONAZOLE INJ 100 MG/50 ML PREMIX IV SCH (01:55)
[2020-10-06 05:32] LABS: Basophils % 0.1 % (0.0-0.8); Hematocrit 47.1 VOL% (35.7-47.0); Immature Granulocytes % 1.6 %; Lymphocytes # 0.1 10*3/uL (1.4-4.0); Lymphocytes % 0.4 % (21.3-54.2); Mean Corpuscular HGB Conc 31.8 GM/DL (32-36); Mean Corpuscular Volume 93.5 FL (87-102); Mean Platelet Volume 12.9 FL (9.6-12.0); Monocytes % 2.8 % (1.7-12.7); Neutrophils % 95.1 % (38.7-73.9); Platelet Count 269 T/CUMM (130-400); Red Blood Count 5.04 MC/CUMM (3.8-5.5); Red Cell Distribution Width 14.4 % (9.3-17.3)
[2020-10-06] MEDS: MEROPENEM 500 MG in SODIUM CHLORIDE 0.9% 100 ML IV SCH ×3 (05:37→22:08)
[2020-10-06] MEDS: LEVOTHYROXINE 100 MCG VIAL IV SCH (05:37)
[2020-10-06 05:53] LABS: Albumin 2.4 G/DL (3.4-5.0); Bilirubin,Total 2.2 MG/DL (0.20-1.00); Calcium 9.8 MG/DL (8.5-10.1); Osmolality,Calculated 308.4 MOS/KG (273-304); Potassium 4.4 MMOL/L (3.5-5.1); Total Protein 5.3 G/DL (6.4-8.2)
[2020-10-06] MEDS: IPRATROPIUM 500 MCG/2.5 ML NEB RESP TX SCH ×2 (07:09→14:02)
[2020-10-06] MEDS: LEVALBUTEROL 0.63 MG/3 ML NEB RESP TX SCH ×2 (07:09→14:02)
[2020-10-06 07:43] LABS: Lymphocytes 1 % (20-55); Platelet Estimate Normal; Segmented Neutrophils 96 % (50-85); Total Cells Counted 100
[2020-10-06] MEDS: INSULIN LISPRO 100 UNIT/ML SUBCUT SCH ×3 (09:47→18:35)
[2020-10-06] MEDS: APIXABAN 2.5 MG TABLET PO SCH ×2 (09:59→22:08)
[2020-10-06] MEDS: ALPRAZolam 0.5 MG TABLET PO SCH ×2 (09:59→22:08)
[2020-10-06] MEDS: MONTELUKAST 10 MG TABLET PO SCH (10:00)
[2020-10-06] MEDS: SPIRONOLACTONE 25 MG TABLET PO SCH ×2 (10:00→22:06)
[2020-10-06] MEDS: POTASSIUM CHLORIDE 20 MEQ TABLET PO SCH (10:00)
[2020-10-06] MEDS: METOPROLOL TARTRATE 25 MG TABLET PO SCH ×2 (10:00→22:07)
[2020-10-06] MEDS: FUROSEMIDE 20 MG/2 ML VIAL IV SCH ×2 (10:01→15:40)
[2020-10-06] MEDS: methylPREDNISolone SOD SUC 40 MG/1 ML VIAL IV SCH ×2 (10:01→22:09)
[2020-10-06] MEDS: PANTOPRAZOLE 40 MG VIAL IV SCH (10:02)
[2020-10-06] MEDS: SODIUM CHLORIDE 0.45% 1,000 ML IV SCH (15:06)
[2020-10-07] MEDS: LEVALBUTEROL 0.63 MG/3 ML NEB RESP TX SCH ×4 (00:04→23:28)
[2020-10-07] MEDS: IPRATROPIUM 500 MCG/2.5 ML NEB RESP TX SCH ×4 (00:04→23:28)
[2020-10-07] MEDS: INSULIN LISPRO 100 UNIT/ML SUBCUT SCH ×5 (01:50→22:09)
[2020-10-07] MEDS: SODIUM CHLORIDE 0.45% 1,000 ML IV SCH ×2 (03:10→11:17)
[2020-10-07] MEDS: FLUCONAZOLE INJ 100 MG/50 ML PREMIX IV SCH (03:11)
[2020-10-07] MEDS: MEROPENEM 500 MG in SODIUM CHLORIDE 0.9% 100 ML IV SCH ×3 (04:29→22:09)
[2020-10-07 05:07] LABS: Basophils % 0.1 % (0.0-0.8); Hematocrit 46.9 VOL% (35.7-47.0); Hemoglobin 14.7 GM/DL (12.0-16.0); Immature Granulocytes Absolute 0.14 #; Lymphocytes # 0.1 10*3/uL (1.4-4.0); Lymphocytes % 0.5 % (21.3-54.2); Mean Corpuscular HGB Conc 31.3 GM/DL (32-36); Mean Corpuscular Volume 94.2 FL (87-102); Mean Platelet Volume 12.9 FL (9.6-12.0); Monocytes % 2.5 % (1.7-12.7); Neutrophils % 95.9 % (38.7-73.9); Platelet Count 206 T/CUMM (130-400); Red Blood Count 4.98 MC/CUMM (3.8-5.5); Red Cell Distribution Width 14.6 % (9.3-17.3); White Blood Count 14.6 T/CUMM (4-12)
[2020-10-07 05:34] LABS: Band Neutrophils 1 % (0-10); Hypochromasia Slight; Lymphocytes 2 % (20-55); Microcytosis Slight; Platelet Estimate Adequate; Segmented Neutrophils 96 % (50-85); Total Cells Counted 100
[2020-10-07 05:35] LABS: Albumin 2.2 G/DL (3.4-5.0); Bilirubin,Total 2.3 MG/DL (0.20-1.00); Calcium 9.8 MG/DL (8.5-10.1); Osmolality,Calculated 313.1 MOS/KG (273-304); Potassium 4.4 MMOL/L (3.5-5.1); Total Protein 5.1 G/DL (6.4-8.2)
[2020-10-07] MEDS: LEVOTHYROXINE 100 MCG VIAL IV SCH (06:07)
[2020-10-07] MEDS: POTASSIUM CHLORIDE 20 MEQ TABLET PO SCH (08:52)
[2020-10-07] MEDS: APIXABAN 2.5 MG TABLET PO SCH ×2 (08:52→22:08)
[2020-10-07] MEDS: ALPRAZolam 0.5 MG TABLET PO SCH ×2 (08:52→22:07)
[2020-10-07] MEDS: FUROSEMIDE 20 MG/2 ML VIAL IV SCH ×2 (08:53→16:30)
[2020-10-07] MEDS: SPIRONOLACTONE 25 MG TABLET PO SCH ×2 (08:53→22:08)
[2020-10-07] MEDS: methylPREDNISolone SOD SUC 40 MG/1 ML VIAL IV SCH ×2 (08:53→22:10)
[2020-10-07] MEDS: METOPROLOL TARTRATE 25 MG TABLET PO SCH ×2 (08:53→22:07)
[2020-10-07] MEDS: MONTELUKAST 10 MG TABLET PO SCH (08:53)
[2020-10-07] MEDS: PANTOPRAZOLE 40 MG VIAL IV SCH (08:54)
[2020-10-08] MEDS: FLUCONAZOLE INJ 100 MG/50 ML PREMIX IV SCH (02:53)
[2020-10-08 05:16] LABS: Basophils % 0.1 % (0.0-0.8); Hematocrit 48.5 VOL% (35.7-47.0); Immature Granulocytes % 0.7 %; Lymphocytes # 0.2 10*3/uL (1.4-4.0); Lymphocytes % 1.3 % (21.3-54.2); Mean Corpuscular HGB Conc 30.9 GM/DL (32-36); Mean Corpuscular Volume 94.4 FL (87-102); Mean Platelet Volume 13.2 FL (9.6-12.0); Monocytes % 3.8 % (1.7-12.7); Neutrophils % 94.1 % (38.7-73.9); Platelet Count 237 T/CUMM (130-400); Red Blood Count 5.14 MC/CUMM (3.8-5.5); Red Cell Distribution Width 14.3 % (9.3-17.3); White Blood Count 14.7 T/CUMM (4-12)
[2020-10-08 05:23] LABS: Albumin 2.2 G/DL (3.4-5.0); Bilirubin,Total 1.7 MG/DL (0.20-1.00); Calcium 10.2 MG/DL (8.5-10.1); Osmolality,Calculated 310.3 MOS/KG (273-304); Potassium 4.2 MMOL/L (3.5-5.1); Total Protein 5.2 G/DL (6.4-8.2)
[2020-10-08] MEDS: MEROPENEM 500 MG in SODIUM CHLORIDE 0.9% 100 ML IV SCH ×3 (05:30→21:35)
[2020-10-08 05:42] LABS: Band Neutrophils 4 % (0-10); Platelet Estimate Normal; Segmented Neutrophils 92 % (50-85); Total Cells Counted 100
[2020-10-08] MEDS: LEVOTHYROXINE 100 MCG VIAL IV SCH (06:04)
[2020-10-08] MEDS: INSULIN LISPRO 100 UNIT/ML SUBCUT SCH ×4 (07:30→21:48)
[2020-10-08] MEDS: LEVALBUTEROL 0.63 MG/3 ML NEB RESP TX SCH ×2 (07:47→14:43)
[2020-10-08] MEDS: IPRATROPIUM 500 MCG/2.5 ML NEB RESP TX SCH ×2 (07:47→14:43)
[2020-10-08] MEDS: APIXABAN 2.5 MG TABLET PO SCH ×2 (09:36→21:31)
[2020-10-08] MEDS: ALPRAZolam 0.5 MG TABLET PO SCH ×2 (09:36→21:32)
[2020-10-08] MEDS: SPIRONOLACTONE 25 MG TABLET PO SCH ×2 (09:36→21:32)
[2020-10-08] MEDS: METOPROLOL TARTRATE 25 MG TABLET PO SCH ×2 (09:36→21:32)
[2020-10-08] MEDS: POTASSIUM CHLORIDE 20 MEQ TABLET PO SCH (09:36)
[2020-10-08] MEDS: MONTELUKAST 10 MG TABLET PO SCH (09:36)
[2020-10-08] MEDS: FUROSEMIDE 20 MG/2 ML VIAL IV SCH (09:37)
[2020-10-08] MEDS: methylPREDNISolone SOD SUC 40 MG/1 ML VIAL IV SCH ×2 (09:37→21:36)
[2020-10-08] MEDS: PANTOPRAZOLE 40 MG VIAL IV SCH (09:37)
[2020-10-08] MEDS: SODIUM CHLORIDE 0.45% 1,000 ML IV SCH (15:18)
[2020-10-09] MEDS: IPRATROPIUM 500 MCG/2.5 ML NEB RESP TX SCH ×3 (00:02→14:00)
[2020-10-09] MEDS: LEVALBUTEROL 0.63 MG/3 ML NEB RESP TX SCH ×3 (00:02→14:00)
[2020-10-09] MEDS: FLUCONAZOLE INJ 100 MG/50 ML PREMIX IV SCH (03:12)
[2020-10-09] MEDS: MEROPENEM 500 MG in SODIUM CHLORIDE 0.9% 100 ML IV SCH ×3 (04:45→20:43)
[2020-10-09 05:19] LABS: Basophils % 0.1 % (0.0-0.8); Hematocrit 48.4 VOL% (35.7-47.0); Hemoglobin 14.9 GM/DL (12.0-16.0); Immature Granulocytes Absolute 0.17 #; Lymphocytes # 0.2 10*3/uL (1.4-4.0); Lymphocytes % 1.3 % (21.3-54.2); Mean Corpuscular HGB Conc 30.8 GM/DL (32-36); Mean Corpuscular Volume 95.5 FL (87-102); Mean Platelet Volume 13.6 FL (9.6-12.0); Monocytes % 3.8 % (1.7-12.7); Neutrophils % 93.8 % (38.7-73.9); Platelet Count 251 T/CUMM (130-400); Red Blood Count 5.07 MC/CUMM (3.8-5.5); Red Cell Distribution Width 14.7 % (9.3-17.3); White Blood Count 17.1 T/CUMM (4-12)
[2020-10-09 05:38] LABS: Hypochromasia Slight; Lymphocytes 2 % (20-55); Platelet Estimate Adequate; Segmented Neutrophils 97 % (50-85); Total Cells Counted 100
[2020-10-09 05:54] LABS: Osmolality,Calculated 318.1 MOS/KG (273-304); Potassium 4.2 MMOL/L (3.5-5.1)
[2020-10-09 05:55] LABS: Albumin 2.2 G/DL (3.4-5.0); Calcium 10.2 MG/DL (8.5-10.1); Osmolality,Calculated 318.1 MOS/KG (273-304); Potassium 4.4 MMOL/L (3.5-5.1); Total Protein 5.4 G/DL (6.4-8.2)
[2020-10-09] MEDS: LEVOTHYROXINE 100 MCG VIAL IV SCH (06:08)
[2020-10-09] MEDS ORDERED: MORPHINE 2 MG/1 ML SYRINGE IV ONE (08:11)
[2020-10-09 08:41] LABS: Calcium 9.9 MG/DL (8.5-10.1); Osmolality,Calculated 323.9 MOS/KG (273-304); Potassium 4.2 MMOL/L (3.5-5.1)
[2020-10-09] MEDS: INSULIN LISPRO 100 UNIT/ML SUBCUT SCH ×4 (08:46→20:43)
[2020-10-09] MEDS: POTASSIUM CHLORIDE 20 MEQ TABLET PO SCH (08:46)
[2020-10-09] MEDS: SPIRONOLACTONE 25 MG TABLET PO SCH ×2 (08:46→20:43)
[2020-10-09] MEDS: APIXABAN 2.5 MG TABLET PO SCH ×2 (08:46→20:43)
[2020-10-09] MEDS: MONTELUKAST 10 MG TABLET PO SCH (08:47)
[2020-10-09] MEDS: ALPRAZolam 0.5 MG TABLET PO SCH ×2 (08:47→20:44)
[2020-10-09] MEDS: METOPROLOL TARTRATE 25 MG TABLET PO SCH ×2 (08:47→20:43)
[2020-10-09 09:57] LABS: Calcium 10.1 MG/DL (8.5-10.1); Potassium 4.1 MMOL/L (3.5-5.1)
[2020-10-09] MEDS: FUROSEMIDE 20 MG/2 ML VIAL IV SCH (10:06)
[2020-10-09] MEDS: PANTOPRAZOLE 40 MG VIAL IV SCH (10:07)
[2020-10-09] MEDS: methylPREDNISolone SOD SUC 40 MG/1 ML VIAL IV SCH ×2 (10:09→20:44)
[2020-10-09] MEDS: LORazepam 2 MG/1 ML VIAL IV PRN ×2 (12:13→18:29)
[2020-10-09] MEDS: MORPHINE 2 MG/1 ML SYRINGE IV PRN (13:05)
[2020-10-09] MEDS: SODIUM CHLORIDE 0.45% 1,000 ML IV SCH (14:28)
[2020-10-10] MEDS: IPRATROPIUM 500 MCG/2.5 ML NEB RESP TX SCH ×3 (00:25→14:54)
[2020-10-10] MEDS: LEVALBUTEROL 0.63 MG/3 ML NEB RESP TX SCH ×3 (00:25→14:54)
[2020-10-10] MEDS: FLUCONAZOLE INJ 100 MG/50 ML PREMIX IV SCH (03:21)
[2020-10-10] MEDS: LORazepam 2 MG/1 ML VIAL IV PRN ×4 (04:56→21:13)
[2020-10-10] MEDS: LEVOTHYROXINE 100 MCG VIAL IV SCH (06:03)
[2020-10-10] MEDS: MEROPENEM 500 MG in SODIUM CHLORIDE 0.9% 100 ML IV SCH ×2 (06:03→15:51)
[2020-10-10] MEDS: INSULIN LISPRO 100 UNIT/ML SUBCUT SCH ×2 (07:26→11:17)
[2020-10-10] MEDS: MORPHINE 2 MG/1 ML SYRINGE IV PRN ×4 (08:32→22:56)
[2020-10-10] MEDS: APIXABAN 2.5 MG TABLET PO SCH (09:03)
[2020-10-10] MEDS: POTASSIUM CHLORIDE 20 MEQ TABLET PO SCH (09:03)
[2020-10-10] MEDS: SPIRONOLACTONE 25 MG TABLET PO SCH (09:03)
[2020-10-10] MEDS: FUROSEMIDE 20 MG/2 ML VIAL IV SCH (09:04)
[2020-10-10] MEDS: methylPREDNISolone SOD SUC 40 MG/1 ML VIAL IV SCH (09:04)
[2020-10-10] MEDS: METOPROLOL TARTRATE 25 MG TABLET PO SCH (09:04)
[2020-10-10] MEDS: PANTOPRAZOLE 40 MG VIAL IV SCH (09:04)
[2020-10-10] MEDS: ALPRAZolam 0.5 MG TABLET PO SCH (09:04)
[2020-10-10] MEDS: MONTELUKAST 10 MG TABLET PO SCH (09:04)
[2020-10-10] MEDS: SODIUM CHLORIDE 0.45% 1,000 ML IV SCH (16:30)
[2020-10-11] MEDS: IPRATROPIUM 500 MCG/2.5 ML NEB RESP TX SCH ×3 (00:03→14:24)
[2020-10-11] MEDS: LEVALBUTEROL 0.63 MG/3 ML NEB RESP TX SCH ×3 (00:03→14:24)
[2020-10-11] MEDS: LORazepam 2 MG/1 ML VIAL IV PRN ×3 (01:10→21:40)
[2020-10-11] MEDS: MORPHINE 2 MG/1 ML SYRINGE IV PRN (02:54)
[2020-10-12] MEDS: IPRATROPIUM 500 MCG/2.5 ML NEB RESP TX SCH ×3 (00:25→14:40)
[2020-10-12] MEDS: LEVALBUTEROL 0.63 MG/3 ML NEB RESP TX SCH ×3 (00:25→14:40)
[2020-10-12] MEDS: SODIUM CHLORIDE 0.45% 1,000 ML IV SCH ×2 (03:03→21:17)
[2020-10-12] MEDS: LORazepam 2 MG/1 ML VIAL IV PRN ×2 (03:04→21:15)
[2020-10-13] MEDS: MORPHINE 2 MG/1 ML SYRINGE IV PRN ×2 (00:58→04:49)
[2020-10-13] MEDS: SODIUM CHLORIDE 0.45% 1,000 ML IV SCH ×2 (02:59→12:00)
[2020-10-13] MEDS: LORazepam 2 MG/1 ML VIAL IV PRN (03:01)
[2020-10-13] MEDS: IPRATROPIUM 500 MCG/2.5 ML NEB RESP TX SCH ×2 (04:55→07:18)
[2020-10-13] MEDS: LEVALBUTEROL 0.63 MG/3 ML NEB RESP TX SCH ×2 (04:55→07:18)
[2020-10-13 12:01] VITALS: BP 122/97
== END 2020-10-13 14:20 | disposition expired | DRG 193 ==
LOC: N.ED 13:45 → SUATTDRO 16:09 → N.EDINP 17:47 → N.3E 19:29
PROVIDERS: ADMIT Emergency Medicine; ATTEND Internal Medicine